=== PATIENT | female | born 1965 | race Asian ===

== ENCOUNTER 2023-03-12 08:40 | Outpatient (CLI) | payer OTHER, SELFPAY ==
--- OUTSIDE RECORDS SUMMARY | 2023-03-16 23:08 | XMS_ITS | Continuity of Care Document ---
Author Name Unknown Organization [facility] Address [address] [place] [address] Phone Care Team Providers Care Medical Communication Specialist Name Role Phone Toñito Lyles MD Unavailable Unavailable Allergies, Adverse Reactions, Alerts Substance Reaction Status Criticality No Known Allergies Active No Inform ation Medications Medication Instructions Dosage Effective Dates (start - stop) Status Comments pilocarpine 5 mg tablet take 1 tablet by oral route 4 times daily - Active Plaquenil 200 mg tablet take 1 tablet by oral route 2 times every day 200 MG - Active amlodipine 5 mg tablet take 1 tablet by oral route every day 5 MG - Active Vitamin B-12 1,000 mcg tablet take 1 Tablet by Oral route every day 1 Tablet - Active estradiol 1 mg tablet take 1 tablet by oral route every day 1 MG - Active norethindrone acetate 5 mg tablet take 1 tablet by oral route every day during second half of the menstrual cycle 5 MG - Active levothyroxine 50 mcg tablet take 1 tablet by oral route every day 50 MCG - Active Zyrtec 10 mg Tab take 1 tablet (10MG) by oral route every day 10 MG - Active pilocarpine 5 mg tablet take 1 tablet by oral route 4 times daily - No Longer Active Plaquenil 200 mg tablet take 1 tablet by oral route 2 times every day 200 MG - No Longer Active Procedures Procedure Date Office/Outpatient Visit, Est Routine Venipuncture Assay Of Serum Albumin Assay Of Creatinine Transferase (Ast) (Sgot) Alanine Amino (Alt) (Sgpt) Complete Cbc, Automated Office/Outpatient Visit, Est Routine Venipuncture Assay Of Serum Albumin Assay Of Creatinine Transferase (Ast) (Sgot) Alanine Amino (Alt) (Sgpt) Complete Cbc, Automated Office/Outpatient Visit, Est Routine Venipuncture Rbc Sed Rate, Nonautomated Assay Of Serum Albumin Assay Of Creatinine Transferase (Ast) (Sgot) Alanine Amino (Alt) (Sgpt) CReactive Protein Complete Cbc, Automated Routine Venipuncture Dna Antibody, Single Strand Dna Antibody, [place] Nuclear Antigen Antibodies Office/Outpatient Visit, Est Routine Venipuncture Rbc Sed Rate, Nonautomated Assay Of Serum Albumin Assay Of Creatinine Transferase (Ast) (Sgot) Alanine Amino (Alt) (Sgpt) CReactive Protein Complete Cbc, Automated Office/Outpatient Visit, Est Routine Venipuncture Assay Of Serum Albumin Assay Of Creatinine Transferase (Ast) (Sgot) Alanine Amino (Alt) (Sgpt) Complete Cbc, Automated Office/Outpatient Visit, Est Routine Venipuncture Rbc Sed Rate, Nonautomated Assay Of Serum Albumin Assay Of Creatinine Transferase (Ast) (Sgot) Alanine Amino (Alt) (Sgpt) CReactive Protein Complete Cbc, Automated Office/Outpatient Visit, Est Office/Outpatient Visit, Est Routine Venipuncture Rbc Sed Rate, Nonautomated Assay Of Serum Albumin Assay Of Creatinine Transferase (Ast) (Sgot) Alanine Amino (Alt) (Sgpt) CReactive Protein Antinuclear Antibodies Complete Cbc, Automated Office/Outpatient Visit, Est Routine Venipuncture Rbc Sed Rate, Nonautomated Assay Of Serum Albumin Assay Of Creatinine Transferase (Ast) (Sgot) Alanine Amino (Alt) (Sgpt) CReactive Protein Complete Cbc, Automated Office/Outpatient Visit, Est Routine Venipuncture Assay Of Serum Albumin Assay Of Creatinine Transferase (Ast) (Sgot) Alanine Amino (Alt) (Sgpt) Complete Cbc, Automated Office/Outpatient Visit, Est Routine Venipuncture Rbc Sed Rate, Nonautomated Assay Of Serum Albumin Assay Of Creatinine Transferase (Ast) (Sgot) Alanine Amino (Alt) (Sgpt) CReactive Protein Complete Cbc, Automated Office/Outpatient Visit, Est Routine Venipuncture Rbc Sed Rate, Nonautomated Assay Of Serum Albumin Assay Of Creatinine Transferase (Ast) (Sgot) Alanine Amino (Alt) (Sgpt) CReactive Protein Complete Cbc, Automated Office/Outpatient Visit, Est Routine Venipuncture Rbc Sed Rate, Nonautomated CReactive Protein Office/Outpatient Visit, New Routine Venipuncture Specimen Handling Rbc Sed Rate, Nonautomated Assay Of Serum Albumin Assay Of Creatinine Transferase (Ast) (Sgot) Alanine Amino (Alt) (Sgpt) CReactive Protein Complete Cbc, Automated Lyme Disease Antibody Rheumatoid Factor, IGM Rheumatoid Factor, IGG, IGA Office/Outpatient Visit, New Routine Venipuncture Specimen Handling CReactive Protein Complete Cbc WAuto Diff Wbc Rbc Sed Rate, Nonautomated Results Test Name Date and Time Measure Units Reference Range Abnormal Flag Status Comments Panel Description: CBC no diff - [place] Final WBC 3 11:07:00 6.6 K/uL 4.0-10.0 Final RBC 3 11:07:00 4.09 M/uL 3.80-5.80 Final Hemoglobin 3 11:07:00 13.5 g/dL 11.5-16.0 Final Hematocrit 3 11:07:00 39.3 % 37.0-47.0 Final MCV 3 11:07:00 96 fL 80-100 Final MCH 3 11:07:00 33.1 pg 27.0-32.0 H Final MCHC 3 11:07:00 34.5 g/dL 32.0-36.0 Final RDW 3 11:07:00 11.2 % 11.0-16.0 Final Platelet Count 11:07:00 356 K/uL 150-500 Final MPV 11:07:00 6.8 fL 6.0-11.0 Final Panel Description: DMARD Final AST 11:52:00 13 U/L 5-34 Final ALT 3 11:52:00 12 IU/L 5-35 Final Creatinine 11:52:00 0.500 mg/dL 0.500-1.300 Final ALB 3 11:52:00 4.1 g/dL 3.5-5.3 Final GFR 11:52:00 134.7 mL/min/1.7 3 m2 Final Advance Directives Directive Yes / No Effective Date File Name No Information Encounters Encounter Description Practice Location Reason(s) For Visit Diagnoses Date Provider Providers Copied on Encounter Office/Outpa tient Visit, Est [facility] , [address], [place], [address], [place] tel:[phone] [facility] , Inflammatory Polyarthropa thy (chief complaint) Inflammatory polyarthropa thyBone healthCounse lingHigh risk medication monitoringDr y mouth 3 Rafal Sibley. [facility] [address], [place], [address], [place]. tel:[phone] Referring Provider: Toñito Freitas, [facility] [address], [place], [address]. tel:[phone] Office/Outpa tient Visit, Est [facility] , [address], [place], [address], [place] tel:[phone] [facility] , Inflammatory Polyarthropa thy (chief complaint) Inflammatory polyarthropa thyBone healthCounse lingHigh risk medication monitoringDr y mouthPain in left hip 2 Rafal Sibley. [facility] [address], [place], [address], [place]. tel:[phone] Referring Provider: Toñito Freitas, [facility] [address], [place], [address]. tel:[phone] Office/Outpa tient Visit, Est [facility] , [address], [place], [address], [place] tel:[phone] [facility] , Inflammatory Polyarthropa thy (chief complaint) Infl[facility]rop[facility] Healthe lingHigh risk medication monitoringPr imary OA of handDry mouth Jan- 2 Rafal Sibley. [facility] [address], [place], [address], [place]. tel:[phone] Referring Provider: Toñito Freitas, [facility] [address], [place], [address]. tel:[phone] [facility] , [address], [place], [address], [place] tel:[phone] [facility] , No Information 2 Rafal Sibley. [facility] [address], [place], [address], [place]. tel:[phone] Referring Provider: Toñito Freitas, [facility] [address], [place], [address]. tel:[phone] Office/Outpa tient Visit, Est [facility] , [address], [place], [address], [place] tel:[phone] [facility] , Inflammatory Polyarthropa thy (chief complaint) Inflammatory polyarthropa thyBone healthCounse lingHigh risk medication monitoringPr imary OA of hand 2 Rafal Sibley. [facility] [address], [place], [address], [place]. tel:[phone] Referring Provider: Toñito Freitas, [facility] [address], [place], [address]. tel:[phone] Office/Outpa tient Visit, Est [facility] , [address], [place], [address], [place] tel:[phone] [facility] , Inflammatory Polyarthropa thy (chief complaint) Inflammatory polyarthropa thyBone healthCounse lingHigh risk medication monitoringLa teral epicondyliti s, left elbow 1 Rafal Sibley. [facility] [address], [place], [address], [place]. tel:[phone] Referring Provider: Toñito Freitas, [facility] [address], [place], [address]. tel:[phone] Office/Outpa tient Visit, Est [facility] , [address], [place], [address], [place] tel:[phone] [facility] , Inflammatory Polyarthropa thy (chief complaint) Inflammatory polyarthropa thyBone healthCounse lingHigh risk medication monitoring 1 Rafal Sibley. [facility] [address], [place], [address], [place]. tel:[phone] Referring Provider: Toñito Freitas, [facility] [address], [place], [address]. tel:[phone] Office/Outpa tient Visit, Est [facility] , [address], [place], [address], [place] tel:[phone] [facility] , Inflammatory Polyarthropa thy (chief complaint) Inflammatory polyarthropa thyBone healthHigh risk medication monitoringCo unseling 0 Rafal Sibley. [facility] [address], [place], [address], [place]. tel:[phone] Referring Provider: Toñito Freitas, [facility] [address], [place], [address]. tel:[phone] Office/Outpa tient Visit, Est [facility] , [address], [place], [address], [place] tel:[phone] [facility] , Inflammatory Polyarthropa thy (chief complaint) Inflammatory polyarthropa thyBone healthHigh risk medication monitoringAc hilles tendinitis, right legDry mouth 0 Rafal Sibley. [facility] [address], [place], [address], [place]. tel:[phone] Referring Provider: Toñito Freitas, [facility] [address], [place], [address]. tel:[phone] Office/Outpa tient Visit, Est [facility] , [address], [place], [address], [place] tel:[phone] [facility] , Inflammatory Polyarthropa thy (chief complaint) Inflammatory polyarthropa thyBone healthHigh risk medication monitoring Dec- Rafal Sibley. [facility] [address], [place], [address], [place]. tel:[phone] Referring Provider: Toñito Freitas, [facility] [address], [place], [address]. tel:[phone] Office/Outpa tient Visit, Est [facility] , [address], [place], [address], [place] tel:[phone] [facility] , Inflammatory Polyarthropa thy (chief complaint) Inflammatory polyarthropa thyBone healthHigh risk medication monitoring [facility] Toñito. [facility] [address], [place], [address], [place]. tel:[phone] Referring Provider: Toñito Freitas, [facility] [address], [place], [address]. tel:[phone] Office/Outpa tient Visit, Est [facility] , [address], [place], [address], [place] tel:[phone] [facility] , Inflammatory Polyarthropa thy (chief complaint) Inflammatory polyarthropa thyBone healthHigh risk medication monitoringPa resthesia of skin [facility] Toñito. [facility] [address], [place], [address], [place]. tel:[phone] Referring Provider: Toñito Freitas, [facility] [address], [place], [address]. tel:[phone] Office/Outpa tient Visit, Est [facility] , [address], [place], [address], [place] tel:[phone] [facility] , Inflammatory Polyarthropa thy (chief complaint) Inflammatory polyarthropa thyBone healthHigh risk medication monitoring 9 Rafal Craigad. [facility] [address], [place], [address], [place]. tel:[phone] Referring Provider: Toñito Freitas, [facility] [address], [place], [address]. tel:[phone] Office/Outpa tient Visit, Est [facility] , [address], [place], [address], [place] tel:[phone] [facility] , Inflammatory Polyarthropa thy (chief complaint) Inflammatory polyarthropa thyBone healthHigh risk medication monitoring 9 Rafal Toñito. [facility] [address], [place], [address], [place]. tel:[phone] Referring Provider: Toñito Freitas, [facility] [address], [place], [address]. tel:[phone] Office/Outpa tient Visit, New [facility] , [address], [place], [address], [place] tel:[phone] [facility] , Joint Pain (chief complaint) Joint pain multiple sitesPositiv e Antibody Nov- 8 Rafal Toñito. [facility] [address], [place], [address], [place]. tel:[phone] Referring Provider: Toñito Freitas, [facility] [address], [place], [address]. tel:[phone] Office/Outpa tient Visit, New [facility] , [address], [place], [address], [place] tel:[phone] [facility] , Joint Pain (chief complaint) Pain in joint involving multiple sitesAchille s bursitis or tendinitis 2 Paras Henderson. [facility] [address], [place], [address], [place]. tel:[phone] Referring Provider: Santiago Fam, [facility] [address], [place], [address]. tel:[phone] Family History Family Member Type Diagnosis Age At Onset Problem (finding) No family hist ory of Rheumatoid arthritis Payers Payer name Insurance type Covered green party ID Authoriza tisonia(s) [facility] [id number] Social History Type Description Quantity Date Captured Comments Alcohol Use Details No Caffeine Use Details Tobacco Use Status No Information Smoking Status Never smoker Non-Smoking Tobacco Use Details : No Details Available : No Details Available Sex Female Vital Signs Date / Time: Height Weight BMI Pulse Rate Blood Pressure Temperature Respiratory Rate Body Surface Area Head Circumference Head Circ. Percentile Wt./Josse. Percentile BMI percentile Pulse Ox Inhaled Ox 9:52 AM 63.78 in 71.668 kg (158.00 lbs) 27.3 1 kg/m eter (2) 128/84 mm[Hg] 97.50 F Chief Complaint And Reason For Visit From encounter dated '12/10/2022 09:45'. Inflammatory Polyarthropathy (chief complaint) Reason For Referral Reason For Referral No Information Plan Of Treatment Date Type Action Status Referral Ordered: [facility] -Orthopedic Surgery (related to Inflammatory polyarthropathy) ordered Referral Referred To: [facility] [place], [address] [phone] Ordered: Referrals: Orthopedic Surgery. [facility]. Evaluate and treat ordered Appointment Emilia Richards BOOKED History Of Present Illness Encounter Date Complaint History Of Prese nt Illness Inflammatory Polyarthropathy Inflammatory Polyarthropathy Inflammatory Polyarthropathy Inflammatory Polyarthropathy Inflammatory Polyarthropathy Inflammatory Polyarthropathy Inflammatory Polyarthropathy Inflammatory Polyarthropathy Inflammatory Polyarthropathy Inflammatory Polyarthropathy Inflammatory Polyarthropathy Inflammatory Polyarthropathy Inflammatory Polyarthropathy Joint Pain Functional Status Date Functional Assessmen t Pain Score 05/12 Instructions Date Instruction Additional Infor mation No Information Assessments Type Assessment Date assessment Inflammatory polyarthropathy Dec assessment Bone health assessment Counseling assessment High risk medication monitoring assessment Dry mouth Patient Care Teams Name Effective Dates (start - stop) Status Members No Information
== END 2023-03-12 08:41 | disposition home or self-care (01) ==
LOC: NFLDREF 03-16 23:05
PROVIDERS: PCP Family Medicine; Referring Provider Family Medicine; Visit Provider Family Medicine
DX: I10 Essential (primary) hypertension (principal); E78.5 Hyperlipidemia, unspecified; E55.9 Vitamin D deficiency, unspecified; E03.9 Hypothyroidism, unspecified
CPT/HCPCS: 80053; 80061; 82306; 84443

== ENCOUNTER 2023-08-03 09:28 | Outpatient (CLI) | payer OTHER, SELFPAY | END 2023-08-03 09:29 | disposition home or self-care (01) | LOC: NFLDREF 17:06 | PROVIDERS: PCP Family Medicine; Referring Provider Family Medicine; Visit Provider Family Medicine | DX: E78.5 Hyperlipidemia, unspecified (principal); I10 Essential (primary) hypertension; R79.89 Other specified abnormal findings of blood chemistry | CPT/HCPCS: 80061; 80076 ==

== ENCOUNTER 2023-08-03 14:43 | Outpatient (CLI) | payer OTHER, SELFPAY ==
--- NOTE | 2023-08-03 15:00 | MM_ITS ---
Patient: REBEL CAMPBELL Facility:?[facility] Patient ID:?[id number] Site Patient ID:?[id number]. Site :?[id number] Study:?XRay-Breast Bilateral 3D screening mammogram w/cad-08/03/2023 3:13:35 PM Ordering Physician:JUAN Final Report: BILATERAL SCREENING MAMMOGRAM WITH COMPUTER-AIDED DETECTION AND TOMOSYNTHESIS TECHNIQUE: CC and MLO views were obtained. These mammographic images have been obtained using full-field digital technique. These mammographic images were interpreted with the benefit of computer-aided detection. Breast Tomosynthesis was used in this interpretation. COMPARISON FILM: 10/03/20, 04/04/19, 01/25/18. FINDINGS: The breasts are heterogeneously dense, which may obscure small masses. IMPRESSION: There is no radiographic evidence for malignancy. ASSESSMENT: BI-RADS Category 1: Negative RECOMMENDATION: Routine screening mammogram in 1 year. A lay language report of this examination will be provided to the patient. Villa Munguia M.D. Diagnostic Radiologist [email or web address] DSM/sp R& Transcribed: 1:57 p.m. SP/Dictated by: Villa Munguia MD @ 08/04/2023 10:01:00 AM Signed by:Leatha Munguia MD @08/04/2023 3:07:20 PM (Electronic Signature)
== END 2023-08-03 14:44 | disposition home or self-care (01) ==
LOC: MAMMO 14:44
PROVIDERS: PCP Family Medicine; Visit Provider Family Medicine
DX: Z12.31 Encounter for screening mammogram for malignant neoplasm of breast (principal); R92.2 Inconclusive mammogram
CPT/HCPCS: 77063; 77067

== ENCOUNTER 2024-03-08 12:24 | Outpatient (CLI) | payer BC, SELFPAY ==
--- OUTSIDE RECORDS SUMMARY | 2024-03-09 08:22 | XMS_ITS | Encounter Summary ---
Author Organization [facility] Address [address] [place] [address] Care Team Providers Care Wick Tender Name Role Phone Toñito Lyles MD Unavailable [phone] Yin Kong Primary Care Provider [phone] Encounter Details Date Type Department Care Team (Late st Contact Info) Description 02/16/2024 Travel Subj: Question naire Submission Social History Tobacco Use Types Packs/Day Years Used Date Smoking Tobacco: Never Smokeless Tobacco: Never Alcohol Use Standard Drinks/Week Comments Not Currently 0 (1 standard drink = 0.6 oz pure alcohol) Patient is allergic to alcohol [facility] Utilities Answer Date Recorded In the past [address] [facility] [place], gas, oil, or water [employer] threatened to shut off services in your home? No 07/21/2023 Humiliation, Afraid, Rape, and Kick questionnair e Answer Date Recorded Within the last year, have y ou been afraid of your partner or ex-partner? No 07/21/2023 Within the last year, have y ou been humiliated or emotionally abused in other ways by your partner or ex-partner? No Within the last year, have y ou been kicked, hit, slapped, or otherwise physically hurt by your partner or ex-partner? No 07/21/2023 Within the last year, have y ou been raped or forced to have any kind of sexual activity by your partner or ex-partner? No 07/21/2023 Social Connection and Isolat ion Panel [NHANES] Answer Date Recorded In a typical week, how many times do you talk on the phone with family, friends, or neighbors? More than three times a week 07/21/2023 How often do you get togethe r with friends or relatives? Once a week 07/21/2023 How often do you attend chur ch or christian services? Never 07/21/2023 Do you belong to any clubs o r organizations such as tenriism groups, unions, fraternal or athletic groups, or school groups? No 07/21/2023 Attends Club or Organization Meetings Not on dominique e 07/21/2023 Are you , , di vorced, , never , or living with a partner? 07/21/2023 AUDIT-C Answer Date Recorded Q1: How often do you have a drink containing alc ohol? Never 07/21/2023 Average Number of Drinks Not on file 024 Frequency of Binge Drinking Not on file 07/02 Overall Financial Resource Strain (CARDIA) Answe r Date Recorded How hard is it for you to pa y for the very basics like food, housing, medical care, and heating? Not hard at all 07/21/2023 [facility] - Occupational Stress Questionnaire Answer Date Recorded Do you feel stress - tense, restless, nervous, or anxious, or unable to sleep at night because your mind is troubled all the time - these days? Not at all 07/21/2023 Exercise Vital Sign Answer Date Recorde d On average, how many days pe r week do you engage in moderate to strenuous exercise (like a brisk walk)? 0 days 07/21/2023 On average, how many minutes do you engage in exercise at this level? 0 min 07/21/2023 Hunger Vital Sign Answer Date Recorded Within the past 12 months, y ou worried that your food would run out before you got the money to buy more. Never true 07/21/19 24 Within the past 12 months, t he food you bought just didn't last and you didn't have money to get more. Never true 07/21/2023 Housing Stability Vital Sign Answer Omar e Recorded In the last 12 months, was t here a time when you were not able to pay the mortgage or rent on time? No 07/21/2023 Number of Times Moved in the Last Year Not on fi le 07/21/2023 Homeless in the Last Year Not on file 2023 Housing Stability Answer Date Recorded In the last 12 months, was t here a time when you were not able to pay the mortgage or rent on time? No 07/21/2023 In the last 12 months, how many places have you lived? 1 07/21/2023 Number of Places Lived in the Last Year (Outpati ent) Not on file 07/21/2023 Number of Places Lived in the Last Year (Inpatie nt) Not on file 07/21/2023 In the last 12 months, was t here a time when you did not have a steady place to sleep or slept in a usp (including now)? No 07/21/2023 Depression (PHQ-9) Answer Date Recorded Last PHQ-9 Score 3 07/21/2023 Thoughts of self harm Not at all 07/21/2023 Intimate Partner Violence Answer Date R ecorded Are you in a relationship wh ere you are physically hurt, threatened and/or made to feel afraid? Unable to assess Transportation Needs Answer Date Record ed In the past 12 months, has l ack of transportation kept you from medical appointments, meetings, work, or from getting medicines or things needed for daily living? No 07/21/2023 Sex and Gender Information Value Date Recorded Sex Assigned at Not on file Gender Identity Not on file Sexual Orientation Not on file documented as of this encounter Functional Status Functional Status Response Date of Assess ment Are you deaf or do you have serious difficulty h earing? No 02/16/2024 documented as of this encounter Plan of Treatment Not on file documented as of this encounter Visit Diagnoses Not on filedocumented in this encounter Care Teams Wick Tender Relationship Specialty Start Date End Date Yin Kong PAC [address] [place] [phone] PCP - General Physician Treatment Coordinator 01/05/24 Toñito Lyles MD [address] [facility] [address] [place] [phone] Internal Medicine Rheumatology 10/11/23 documented as of this encounter Additional Source Comments PLEASE NOTE: Replies to this message will not be received.[facility]
--- OUTSIDE RECORDS SUMMARY | 2024-03-09 08:22 | XMS_ITS | Referral Summary ---
Author Organization [facility] Address [address] [place] [address] Care Team Providers Care Copy Preparer Name Role Phone Toñito Lyles MD Unavailable [phone] Yin Kong Primary Care Provider [phone] Encounters Date Type Department Care Team Description 02/16/2024 Travel Subj: Question ko Submission 02/16/2024 10:17 AM CDT - 02/16/2024 11:59 PM CDT Hospital Encounter [facility] Nuclear Medicine (a service of [facility]) [address] [place] [address] Swathi Medley, PAC Subj: Questionnaire Submission Discharge Disposition: Discharge Home 01/31/2024 Travel Subj: Question ko Submission 01/31/2024 9:40 AM CDT Office Visit [facility] [address] [place] [address] Shahana Thao APRN,TALENT ASSISTANT Dx: Muscle strain (Primary Dx) from Last 3 Months Allergies Active Allergy Reactions Criticality Noted Date Comments Sulfa (Sulfonamide Antibiotics) Diarrhea Low 05/0 10/2023 Medications Medication Sig Dispensed Refills Start Date End Date Status norethindrone-ethi nyl estradiol (FEMHRT) 1-5 mg-mcg oral Tablet tablet Take 1 Tablet by mouth in the evening. 5 mg daily in the evening Active levothyroxine (SYNTHROID) 50 mcg oral Tablet Take 1 Tablet (50 mcg) by mouth daily before breakfast. Active estradioL (ESTRACE) 1 mg oral Tablet Take 1 Tablet (1 mg) by mouth in the morning. Active amLODIPine (NORVASC) 5 mg oral Tablet Take by mouth in the morning. Active pilocarpine (SALAGEN) 5 mg oral Tablet Take 1 Tablet (5 mg) by mouth in the morning and 1 Tablet (5 mg) at noon and 1 Tablet (5 mg) in the evening and 1 Tablet (5 mg) before bedtime. Take 3-4 times daily. Active hydrOXYchloroQUINE (PLAQUENIL) 200 mg oral Tablet Take 1 Tablet (200 mg) by mouth in the morning and 1 Tablet (200 mg) in the evening. Active famotidine (PEPCID) 20 mg oral TabletIndications: Generalized abdominal pain,Epigastric pain Take 1 Tablet (20 mg) by mouth in the morning and 1 Tablet (20 mg) in the evening. 180 Tablet 3 07/21/2023 07/20/2024 Active Additional Information Patient taking differently:20 mg oralAs needed, dyspepsia, Reason: Other, Reported on 08/25/2023 rosuvastatin (CRESTOR) 5 mg oral Tablet Take 1 Tablet (5 mg) by mouth in the morning. 07/06/2023 Active RESTASIS 0.05 % ophthalmic Dropperette 1 Drop by both eyes (OU) route in the morning and 1 Drop in the evening. 08/23/2023 Active metroNIDAZOLE (METROCREAM) 0.75 % topical Cream Apply to the affected area(s) twice daily. 08/23/2023 Active cyanocobalamin (VITAMIN B-12) 1,000 mcg oral Tablet Take 1 Tablet (1,000 mcg) by mouth in the morning. Active KRILL OIL ORAL Take by mouth once daily. Active Saccharomyces boulardii (FLORASTOR) 250 mg oral Capsule Take by mouth once daily. Active omeprazole (PRILOSEC) 20 mg oral Capsule, Delayed Release(E.C.)Indic ations:Epigastric pain Take 1 Capsule (20 mg) by mouth daily before breakfast. 90 Capsule 3 08/25/2023 08/24/2024 Active clindamycin phosphate (CLEOCIN) 1 % topical Solution 10/05/2023 Active cyclobenzaprine (FLEXERIL) 10 mg oral TabletIndications: Injury of back, initial encounter,Muscle strain Take 1 Tablet (10 mg) by mouth if needed at bedtime for muscle spasms. 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 HTN (hypertension), benign 03/01/2022 Menopause 03/01/2022 Allergic urticaria 03/01/2022 Sjogren's disease 11/22/2021 Seasonal allergies 09/04/2009 Immunizations Name Administration Dates Next Due Influenza Vac, IM, Quadrival ent Preserv Free, (>6 months) 03/26/2023,04/07/2016 Tdap Vaccine, IM, (Adacel)(Boostrix) 01/14/2018, 10/13/2014,01/25/2006 Varicella Vaccine, IM (Shingrix) 09/21/2019,04/02 Social History Tobacco Use Types Packs/Day Years Used Date Smoking Tobacco: Never Smokeless Tobacco: Never Tobacco Cessation:Counseling Given: Not Answered Alcohol Use Standard Drinks/Week Comments Not Currently 0 (1 standard drink = 0.6 oz pure alcohol) Patient is allergic to alcohol [employer] Answer Date Recorded In the past 12 months has [employer], gas, oil, or water [employer] threatened to shut off services in your [...] often do you attend chur ch or latter day services? Never 07/21/2023 Do you belong to any clubs o r organizations such as islam groups, unions, fraternal or athletic groups, or [...] and heating? Not hard at all 07/21/2023 [facility] - Occupational Stress [...] place to sleep or slept in a halfway (including now)? No 07/21/2023 Depression (PHQ-9) Answer [...] on file Sexual Orientation Not on file Last Filed Vital Signs Vital Sign Reading Time Taken Comments Blood Pressure 146/87 01/31/2024 9:30 AM CDT Pulse 118 01/31/2024 9:30 AM CDT Temperature 36.8 ??C (98.3 ??F) 07/23/2023 6:04 PM CD T Respiratory Rate 18 07/23/2023 6:04 PM CDT Oxygen Saturation 98% 09/06/2023 1:54 PM CDT Inhaled Oxygen Concentration - - Weight 70.8 kg (156 lb) 02/16/2024 10:37 AM CDT Height 164 cm (5' 4.57) 09/06/2023 1:54 PM CDT Body Mass Index 26.31 09/06/2023 1:54 PM CDT Functional Status Functional Status Response Date of Assess ment Are you deaf or do you have serious difficulty h earing? No 02/16/2024 Plan of Treatment Not on file Procedures Procedure Name Priority Date/Time Associated Diagnosis Comments NM HEPATOBILIARY SCAN W PHARM Routine 02/16/2024 12:43 PM CDT from Last 3 Months Results * NM HEPATOBILIARY SCAN W PHARM (02/16/2024 12:43 PM CDT) Anatomical Region Laterality Modality Gall bladder Nuclear Medicine 02/16/2024 4:43 PM CDT Narrative 02/16/2024 4:44 PM CDT EXAM: NM HEPATOBILIARY SCAN W PHARM INDICATION: Epigastric pain. O/A Hida scan w ejection fraction RADIOPHARMACEUTICALS: MATERIAL: Tc-99m mebrofenin IV DOSE: 4.20 mci CCK: 1.42 micrograms IV TECHNIQUE: Following radiotracer administration, anterior planar imaging of the abdomen was performed for up to 60 minutes. ??After visualization of the gallbladder, CCK was administered over 60 minutes and time-activity curve was generated with gall bladder ejection fraction calculated. COMPARISON: There are no relevant comparisons. FINDINGS: There is prompt, uniform accumulation of the radiopharmaceutical by the liver. There is normal filling of the intrahepatic ducts, common bile duct and gallbladder and normal excretion of the radiopharmaceutical into the duodenum. There isgood contraction of the gallbladder following CCK challenge. Calculated gallbladder ejection fraction is 96% (normal greater than 33%). IMPRESSION: 1. Normal contractile response to CCK challenge. 2. Otherwise normal hepatobiliary imaging study. Procedure Note Torsten Vincent MD - 02/16/2024 EXAM: NM HEPATOBILIARY SCAN W PHARM INDICATION: Epigastric pain. O/A Hida scan w ejection fraction RADIOPHARMACEUTICALS: MATERIAL: Tc-99m mebrofenin IV DOSE: 4.20 mci CCK: 1.42 micrograms IV TECHNIQUE: Following radiotracer administration, anterior planar imaging of theabdomen was performed for up to 60 minutes. After visualization of thegallbladder, CCK was administered over 60 minutes and time-activity curve was generatedwith gall bladder ejection fraction calculated. COMPARISON: There are no relevant comparisons. FINDINGS: There is prompt, uniform accumulation of the radiopharmaceutical by theliver. There is normal filling of the intrahepatic ducts, common bile duct and gallbladder and normal excretion of the radiopharmaceutical into theduodenum. There isgood contraction of the gallbladder following CCK challenge. Calculated gallbladder ejection fraction is 96% (normal greater than33%). IMPRESSION: 1. Normal contractile response to CCK challenge. 2. Otherwise normal hepatobiliary imaging study. Swathi E Galindo [facility] RAD NUCLEAR MEDICI NE from Last 3 Months Care Teams Copy Preparer Relationship Specialty Start Date End Date Yin Kong PAC [address] [place] [phone] PCP - General Physician Pruner 01/05/24 Toñito Lyles MD [address] [facility] [address] [phone] Internal Medicine Rheumatology 10/11/23 Additional Source Comments PLEASE NOTE: Replies to this message will not be received.[facility]
--- OUTSIDE RECORDS SUMMARY | 2024-03-09 08:22 | XMS_ITS | Clinical Summary ---
Author Organization [facility] Address [place], [place] [address] Care Team Providers Care [employer] Miner Name Role Phone Poly Dixon MD Primary Care Provider + Allergies Active Allergy Reactions Criticality Noted Date Comments Sulfa (Sulfonamide Antibiotics) Diarrhea Low 10/2023 Medications Medication Sig Dispensed Refills Start Date End Date Status amLODIPine (NORVASC) 5 mg tablet Take by mouth. Active cetirizine (ZYRTEC) 10 mg tablet Take 1 Tablet by mouth once daily. Active clindamycin phosphate 1% topical 1 % external solution 10/05/2023 Active cyanocobalamin (VITAMIN B12) 1,000 mcg tablet Take 1,000 mcg by mouth. Active cycloSPORINE (Restasis) 0.05 % ophthalmic emulsion Place 1 Drop into the eye(s). 08/23/2023 Active estradioL (ESTRACE) 1 mg tablet Take 1 mg by mouth. Active famotidine (PEPCID) 20 mg tablet Take 20 mg by mouth. 07/21/2023 07/20/2024 Active hydroxychloroquine (PlaqueniL) 200 mg tablet Take by mouth two times daily. 10/14/2023 Active levothyroxine (SYNTHROID) 50 mcg tablet Take 50 mcg by mouth. Active metroNIDAZOLE (METROCREAM) 0.75 % cream Apply topically to affected area(s). 08/23/2023 Active ethinyl estradiol-norethindr one, 5 mcg-1 mg, (FEMHRT 1/5) 5-1 mcg-mg tab Take 1 Tablet by mouth. Active omeprazole (PRILOSEC) 20 mg Delayed-Release capsule Take 20 mg by mouth. 08/25/2023 08/24/2024 Active pilocarpine (SALAGEN) 5 mg tablet take 1 tablet by oral route 4 times daily 10/14/2023 Active rosuvastatin (CRESTOR) 5 mg tablet Take 5 mg by mouth. 07/06/2023 Active Saccharomyces boulardii (FLORASTOR) 250 mg capsule Take by mouth. Active Encounters Date Type Department Care Team Description 02/21/2024 11:00 AM CDT Office Visit [facility] [address] [place] [phone] Celina Guzman MD Consult (Gallbladder ) 02/21/2024 Travel from Last 3 Months Social History Tobacco Use Types Packs/Day Years Used Date Smoking Tobacco: Never Assessed Sex and Gender Information Value Date Recorded Sex Assigned at Not on file Gender Identity Not on file Sexual Orientation Not on file Last Filed Vital Signs Vital Sign Reading Time Taken Comments Blood Pressure 153/92 02/21/2024 11:08 AM CDT Pulse 109 02/21/2024 11:08 AM CDT Temperature 37.3 ??C (99.1 ??F) 02/21/2024 1 1:06 AM CDT Respiratory Rate - - Oxygen Saturation 96% 02/21/2024 11: 06 AM CDT Inhaled Oxygen Concentration - - Weight 73.4 kg (161 lb 14.4 oz) 024 11:06 AM CDT Height 162.6 cm (5' 4) 02/21/2024 11:0 6 AM CDT Body Mass Index 27.79 02/21/2024 11:06 AM CDT Plan of Treatment Upcoming Encounters Date Type Department Care Team (Latest Contact Info) Description 03/24/2024 1:16 PM METALLURGICAL LAB TECHNICIAN Hospital Encounter [facility] [address] [place] [address] Celina Guzman MD [address] [id number] 03/24/2024 1:16 PM METALLURGICAL LAB TECHNICIAN - 03/24/2024 3:16 PM METALLURGICAL LAB TECHNICIAN Surgery [facility] [address] [place] [address] Celina Guzman MD [address] [place] [address] laparoscopic cholecystectomy 03/29/2024 10:40 AM METALLURGICAL LAB TECHNICIAN Nurse/Clinic Staff Only [facility] [address] [place] [phone] Scheduled Procedures Name Priority Associated Diagnoses Date/Ti me LAPAROSCOPIC CHOLECYSTECTOMY Elective Biliary dyskinesia 03/24/2024 1:16 PM METALLURGICAL LAB TECHNICIAN Health Maintenance Due Date Last Done Comments Tdap 10/21/1975 Depression screening for age 12+ 1976 HIV for age 15-65 10/21/1979 Hepatitis C screening for age 18-79 1982 Tetanus booster 1984 Colonoscopy through age 75 2009 Lipids for age 45-75 2009 Mammogram for age 45-75 2009 Zoster (shingles) series for age 50+ (1 of 2) 2014 COVID-19 vaccine series ( season) 2024 11/19/2021, 02/10/2021, 08/13/2020, Additional history exists Influenza for age 50-64 01/02/2024 Pap test for age 21-65 10/22/2024 , 10/22/2021, 04/30/2017, Additional history exists BMI (ht and wt on same day) for age 18+ 02/20/2025 02/21/2024 Pneumococcal series for age 6-64 Aged Out No longer eligible based on patient's age to complete this topic Procedures Procedure Name Priority Date/Time Associated Diagnosis Comments HPV HIGH RISK Routine 10/22/2021 1:15 PM CDT from Last 3 Months or Most Recently Relevant to Health Maintenance Results * HPV HIGH RISK (10/22/2021 1:15 PM CDT) TYPE 16 Negative Negative 10/27/2021 11:09 AM CDT [facility] TYPE 18 Negative Negative 10/27/2021 11:09 AM CDT [facility] OTHER HIGH RISK TYPES Negative Negative 10/27/2021 11:09 AM CDT [facility] Other (Cervical) 10/22/2021 1:15 PM CDT 10/23/2021 6:02 PM CDT Narrative [facility] - 10/27/2021 11:09 AM CDT HPV types 16, 18, 31, 33, 35, 39, 45, 51, 52, 56, 58, 59, 66 and 68 DNA were undetectable or below the pre-set threshold. Methodology: Vika Juaquin 4800 HPV Test Juliana Us MD MICROBIOLOGY [facility] [address] [place] [address], from Last 3 Months or Most Recently Relevant to Health Maintenance Care Teams [employer] Miner Relationship Specialty Start Date End Date Poly Dixon MD [address] [place] [address] PCP - General Family Practice 03/06/24
--- OUTSIDE RECORDS SUMMARY | 2024-03-09 08:22 | XMS_ITS | Encounter Summary ---
Author Organization [facility] Address [address] [place] [address] Care Team Providers Care Production Team Member Name Role Phone Toñito Lyles MD Unavailable [phone] Yin Kong Primary Care Provider [phone] Encounter Details Date Type Department Care Team (Late st Contact Info) Description 01/31/2024 Travel Subj: Question naire Submission Social History Tobacco Use Types Packs/Day Years Used Date Smoking Tobacco: Never Smokeless Tobacco: Never Alcohol Use Standard Drinks/Week Comments Not Currently 0 (1 standard drink = 0.6 oz pure alcohol) Patient is allergic to alcohol [facility] Utilities Answer Date Recorded In the past 12 months has [facility] [employer], gas, oil, or water [employer] threatened to shut off services in your [...] often do you attend chur ch or mormonism services? Never 07/21/2023 Do you belong to any clubs o r organizations such as latter-day groups, unions, fraternal or athletic groups, or [...] and heating? Not hard at all 07/21/2023 [facility] Occupat ional Health - Occupational Stress [...] place to sleep or slept in a alf (including now)? No 07/21/2023 Depression (PHQ-9) Answer [...] on file documented as of this encounter Plan of Treatment Not on file documented as of this encounter Visit Diagnoses Not on filedocumented in this encounter Care Teams Production Team Member Relationship Specialty Start Date End Date Yin Kong PAC [address], [place] [phone] PCP - General Physician [employer] Architect 01/05/24 Toñito Lyles MD [address] [facility] [address] [phone] Internal Medicine Rheumatology 10/11/23 documented as of this encounter Additional Source Comments PLEASE NOTE: Replies to this message will not be received.[facility]
--- OUTSIDE RECORDS SUMMARY | 2024-03-09 08:22 | XMS_ITS | Encounter Summary ---
Author Organization [facility] [employer] [facility] Address [address] [place] [address] Care Team Providers Care Licensed Marine Engineer Name Role Phone Toñito Lyles MD Unavailable [phone] Yin Kong Primary Care Provider [phone] Reason for Visit * Reason Comments Back Pain Encounter Details Date Type Department Care Team (Late st Contact Info) Description 01/31/2024 9:40 AM CDT Office Visit [facility] [address] [place], [place] [id number] Shahana Thao, LEAF STRIPPER,MINUTE CLERK FOR BASIC TRAFFIC [address] [place] [phone] Dx: Muscle strain (Primary Dx) Social History Tobacco Use Types Packs/Day Years Used Date Smoking Tobacco: Never Smokeless Tobacco: Never Alcohol Use Standard Drinks/Week Comments Not Currently 0 (1 standard drink = 0.6 oz pure alcohol) Patient is allergic to alcohol [facility] Utilities Answer Date Recorded In the past 12 months has [employer], gas, oil, or water [employer] threatened to shut off services in your [...] 07/21/2023 How often do you attend chur or quaker services? Never 07/21/2023 Do you belong to any clubs o r organizations such as jewish groups, unions, fraternal or athletic groups, or [...] and heating? Not hard at all 07/21/2023 [facility] - Occupational Stress Questionnaire Answer Date [...] place to sleep or slept in a [facility] (including now)? No 07/21/2023 Depression (PHQ-9) Answer [...] on file documented as of this encounter Last Filed Vital Signs Vital Sign Reading Time Taken Comments Blood Pressure 146/87 01/31/2024 9:30 AM CDT Pulse 118 01/31/2024 9:30 AM CDT Temperature - - Respiratory Rate - - Oxygen Saturation - - Inhaled Oxygen Concentration - - Weight - - Height - - Body Mass Index - - documented in this encounter Patient Instructions * Patient Instructions* Shahana Thao, BETSY,MINUTE CLERK FOR BASIC TRAFFIC - 01/31/2024 9:40 AM CDT Images from the original note were not included. Some things you can do to help your symptoms: Heat to the back. Do this for about 20 minutes at least 2 times per day. If a recent injury every 2-3 hours for about 20 minutes. Medications as advised during appointment. Stretching your back (See Below) Stay active, but listen to your body. Bedrest is the worst thing you can do for your back, but avoid activities that exacerbate symptoms such as heavy lifting. Learning About How to Have a Healthy Back What causes back pain? The majority of back pain is due to muscle strain, wear and tear on the back, or deconditioning (weakness) and responds well to conservative care. Imaging (MRI) is not necessary in most cases. We would consider imaging in 4-6 weeks if the pain persists. Alarming signs would including loss of function in the legs or bladder and bowel. If this should occur, you should seek immediate medical attention. Aging plays a part too. Your bones and muscles tend to lose strength as you age, which makes injurymore likely. The spongy discs between the bones of the spine (vertebrae) may suffer from wear and tear and no longer provide enough cushion between the bones. A disc that bulges or breaks open (herniated disc) can press on nerves, causing back pain. In some people, back pain is the result of arthritis, broken vertebrae caused by bone loss (osteoporosis), illness, or a spine problem. Although most people have back pain at one time or another, there are steps you can take to make itless likely. How can you have a healthy back? Reduce stress on your back through good posture Slumping or slouching alone may not cause low back pain. But after the back has been strained or injured, bad posture can make pain worse. Sleep in a position that maintains your back's normal curves and on a mattress that feels comfortable. Sleep on your side with a pillow between your knees, or sleep on your back with a pillow under your knees. These positions can reduce strain on your back. Stand and sit up straight. Good posture generally means your ears, shoulders, and hips are in a straight line. If you must stand for a long time, put one foot on a stool, ledge, or box. Switch feet every now and then. Sit in a chair that is low enough to let you place both feet flat on the floor with both knees nearly level with your hips. If your chair or desk is too high, use a footrest to raise your knees. Place a small pillow, a rolled-up towel, or a lumbar roll in the curve of your back if you need extra support. When driving, keep your knees nearly level with your hips. Sit straight, and drive with both hands on the steering wheel. Your arms should be in a slightly bent position. Reduce stress on your back through careful lifting Squat down, bending at the hips and knees only. If you need to, put one knee to the floor and extend your other knee in front of you, bent at a right angle (half kneeling). Press your chest straight forward. This helps keep your upper back straight while keeping a slight arch in your low back. Hold the load as close to your body as possible, at the level of your belly button (navel). Use your feet to change direction, taking small steps. Lead with your hips as you change direction. Keep your shoulders in line with your hips as you move. Set down your load carefully, squatting with your knees and hips only. Lead a healthy lifestyle Stay at a healthy weight to avoid strain on your back. Do not smoke. Smoking increases the risk of osteoporosis, which weakens the spine. If you need helpquitting, talk to your doctor about stop-smoking programs and medicines. These can increase your chances of quitting for good. Take short walks (10 to 20 minutes) every 2 to 3 hours. Avoid slopes, hills, and stairs until you feel better. Walk only distances you can manage without pain, especially leg pain. Low Back Pain: Exercises Introduction Here are some examples of exercises for you to try. The exercises may be suggested for a condition or for rehabilitation. Start each exercise slowly. Ease off the exercises if you start to have pain. How to do the exercises Back stretches Get down on your hands and knees on the floor. Relax your head and allow it to droop. Round your back up toward the ceiling until you feel a nice stretch in your upper, middle, and lower back. Hold this stretch for as long as it feels comfortable, or about 15 to 30 seconds. Return to the starting position with a flat back while you are on your hands and knees. Let your back sway by pressing your stomach toward the floor. Lift your buttocks toward the ceiling. Hold this position for 15 to 30 seconds. Repeat 2 to 4 times. Press-up Lie on your stomach, supporting your body with your forearms. Press your elbows down into the floor to raise your upper back. As you do this, relax your stomach muscles and allow your back to arch without using your back muscles. As your press up, do not let your hips or pelvis come off the floor. Hold for 15 to 30 seconds, then relax. Repeat 2 to 4 times. Alternate arm and leg (bird dog) exercise Do this exercise slowly. Try to keep your body straight at all times, and do not let one hip drop lower than the other. Start on the floor, on your hands and knees. Tighten your belly muscles. Raise one leg off the floor, and hold it straight out behind you. Be careful not to let your hip drop down, because that will twist your trunk. Hold for about 6 seconds, then lower your leg and switch to the other leg. Repeat 8 to 12 times on each leg. Over time, work up to holding for 10 to 30 seconds each time. If you feel stable and secure with your leg raised, try raising the opposite arm straight out in front of you at the same time. [id number] exercise Lie on your back with your knees bent and your feet flat on the floor. Bring one knee to your chest, keeping the other foot flat on the floor (or keeping the other leg straight, whichever feels better on your lower back). Keep your lower back pressed to the floor. Hold for at least 15 to 30 seconds. Relax, and lower the knee to the starting position. Repeat with the other leg. Repeat 2 to 4 times with each leg. To get more stretch, put your other leg flat on the floor while pulling your knee to your chest. Pelvic tilt exercise Lie on your back with your knees bent. Brace your stomach. This means to tighten your muscles by pulling in and imagining your belly button moving toward your spine. You should feel like your back is pressing to the floor and your hips and pelvis are rocking back. Hold for about 6 seconds while you breathe smoothly. Repeat 8 to 12 times. Heel dig bridging Lie on your back with both knees bent and your ankles bent so that only your heels are digging intothe floor. Your knees should be bent about 90 degrees. Then push your heels into the floor, squeeze your buttocks, and lift your hips off the floor until your shoulders, hips, and knees are all in a straight line. Hold for about 6 seconds as you continue to breathe normally, and then slowly lower your hips back down to the floor and rest for up to 10 seconds. Do 8 to 12 repetitions. Hamstring stretch in doorway Lie on your back in a doorway, with one leg through the open door. Slide your leg up the wall to straighten your knee. You should feel a gentle stretch down the back of your leg. Hold the stretch for at least 15 to 30 seconds. Do not arch your back, point your toes, or bend either knee. Keep one heel touching the floor and the other heel touching the wall. Repeat with your other leg. Do 2 to 4 times for each leg. Hip flexor stretch Kneel on the floor with one knee bent and one leg behind you. Place your forward knee over your foot. Keep your other knee touching the floor. Slowly push your hips forward until you feel a stretch in the upper thigh of your rear leg. Hold the stretch for at least 15 to 30 seconds. Repeat with your other leg. Do 2 to 4 times on each side. documented in this encounter Progress Notes * Shahana Thao APRN, CNP - 01/31/2024 9:40 AM CDT Images from the original note were not included. [facility] Shahana Thao APRN, CNP SUBJECTIVE Chief Complaint Patient presents with Back Pain HPI This has been present for 3 weeks. 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 It is located bilateral thoracic back and bilateral lower back. The pain began gradually. The pain is described as aching. Pain at its worst is 8/10- constant pain is around a 5/10 . Triggering factors include: bending and being in one position for too long Relieving factors include: rest, walking, and OTC analgesics. Pertinent negatives include:weakness of the foot/leg, numbness or tingling of the foot/leg, saddle numbness, difficulty emptying bowel or bladder , urinary frequency, and urinary or fecal Incontinence . she has noted no other significant symptoms. There have been no similar symptoms in the past. Patient does not have a history of back surgery. Overall she feels her symptoms are worsening. Please note active problem list and medical history listed below: Patient Active Problem List Diagnosis Conchis's disease Inflammatory polyarthropathy (HCC) HTN (hypertension), benign Menopause Allergic urticaria Hypothyroidism Seasonal allergies Sjogren's disease (HCC) Hypertensive disorder Past Surgical History: Procedure Laterality Date SECTION Current Outpatient Medications: amLODIPine (NORVASC) 5 mg oral Tablet, Take by mouth in the morning., Disp: , Rfl: clindamycin phosphate (CLEOCIN) 1 % topical Solution, , Disp: , Rfl: cyanocobalamin (VITAMIN B-12) 1,000 mcg oral Tablet, Take 1 Tablet (1,000 mcg) by mouth in the morning., Disp: , Rfl: cyclobenzaprine (FLEXERIL) 10 mg oral Tablet, Take 1 Tablet (10 mg) by mouth if needed at bedtime for muscle spasms. Do not drive within 8 hours of taking medicaiton, Disp: 20 Tablet, Rfl: 0 estradioL (ESTRACE) 1 mg oral Tablet, Take 1 Tablet (1 mg) by mouth in the morning., Disp: , Rfl: famotidine (PEPCID) 20 mg oral Tablet, Take 1 Tablet (20 mg) by mouth in the morning and 1 Tablet (20 mg) in the evening. (Patient taking differently: Take 1 Tablet (20 mg) by mouth if needed for dyspepsia.), Disp: 180 Tablet, Rfl: 3 hydrOXYchloroQUINE (PLAQUENIL) 200 mg oral Tablet, Take 1 Tablet (200 mg) by mouth in the morning and 1 Tablet (200 mg) in the evening., Disp: , Rfl: KRILL OIL ORAL, Take by mouth once daily., Disp: , Rfl: levothyroxine (SYNTHROID) 50 mcg oral Tablet, Take 1 Tablet (50 mcg) by mouth daily before breakfast., Disp: , Rfl: methylPREDNISolone (MEDROL DOSPACK) 4 mg oral Tablets, Dose Pack, Take 1-6 Tablets (4-24 mg) by mouth as directed for 6 days. Take per package instructions., Disp: 21 Tablet, Rfl: 0 metroNIDAZOLE (METROCREAM) 0.75 % topical Cream, Apply to the affected area(s) twice daily., Disp: , Rfl: norethindrone-ethinyl estradiol (FEMHRT) 1-5 mg-mcg oral Tablet tablet, Take 1 Tablet by mouth in the evening. 5 mg daily in the evening, Disp: , Rfl: omeprazole (PRILOSEC) 20 mg oral Capsule, Delayed Release(E.C.), Take 1 Capsule (20 mg) by mouth daily before breakfast., Disp: 90 Capsule, Rfl: 3 pilocarpine (SALAGEN) 5 mg oral Tablet, Take 1 Tablet (5 mg) by mouth in the morning and 1 Tablet (5 mg) at noon and 1 Tablet (5 mg) in the evening and 1 Tablet (5 mg) before bedtime. Take 3-4 times daily., Disp: , Rfl: RESTASIS 0.05 % ophthalmic Dropperette, 1 Drop by both eyes (OU) route in the morning and 1 Drop inthe evening., Disp: , Rfl: rosuvastatin (CRESTOR) 5 mg oral Tablet, Take 1 Tablet (5 mg) by mouth in the morning., Disp: , Rfl: Saccharomyces boulardii (FLORASTOR) 250 mg oral Capsule, Take by mouth once daily., Disp: , Rfl: Review of Systems Pertinent items noted in HPI. All other systems reviewed and are negative. OBJECTIVE Vitals: 01/31/24 0930 BP: 146/87 BP Source: R arm BP position: Standing Pulse: 118 Physical Exam Constitutional: General: She is not in acute distress. Appearance: Normal appearance. HENT: Head: Normocephalic. Nose: Nose normal. Eyes: Conjunctiva/sclera: Conjunctivae normal. Pulmonary: Effort: Pulmonary effort is normal. No respiratory distress. Musculoskeletal: General: No swelling or tenderness. Cervical back: Normal and normal range of motion. No tenderness or bony tenderness. Normal range ofmotion. Comments: Gait normal and independent, Standing during the visit.Posture:, Normal and upright No deformity, ecchymosis, or warmth noted. Full sensation of bilateral lower extremities. Tenderness present over bilateral thoracic back and right midline lower back. Muscle tension: is noted bilateral thoracic back and bilateral lower back ROM:Flexion and extension are abnormal extension to estimated 5 degree. Flexion with pain starting at 40 degree, able to flex to fingertips below knees. Bilateral rotation is within normal limits. Pain is not present with bilateral side bending. Skin: General: Skin is warm and dry. Neurological: Mental Status: She is alert and oriented to person, place, and time. Motor: No weakness. Gait: Gait normal. Psychiatric: Mood and Affect: Mood normal. Behavior: Behavior normal. Thought Content: Thought content normal. ASSESSMENT & PLAN/MDM 1. Muscle strain methylPREDNISolone (MEDROL DOSPACK) 4 mg oral Tablets, Dose Pack cyclobenzaprine (FLEXERIL) 10 mg oral Tablet 2. Injury of back, initial encounter methylPREDNISolone (MEDROL DOSPACK) 4 mg oral Tablets, Dose Pack cyclobenzaprine (FLEXERIL) 10 mg oral Tablet I discussed my physical findings with the Patient. At this time Emilia back symptoms are more muscular in nature. Recommend OTC Acetaminophen (500mg, 2 tabs, up to 4 times daily as needed, not to exceed 4 g per day) and topical analgesics (Biofreeze, Menthol, etc) for symptom relief. Also utilize warm compresses and gentle stretching. Avoid activities that exacerbate symptoms but remain active. Handouts on pain and management given. Scripts given for dose pack and muscle relaxant. Patient discharged in no acute distress. , Verbalized when to return for reassessment or be seen inthe ER/UC. Red flag warning signs symptoms discussed. , Discussed further symptomatic care as in patient instructions. Patient states understanding, agreement and comfort with this plan through use of shared decision making. No further questions at discharge. PLEASE NOTE: The examination and treatment that you have received at [facility] has been rendered on a problem specific basis. The examination and treatment were not intended to be a substitute for routine medical care and were not an effort to provide complete medical service. It is important that you be examined again as recommended, and report any new or persisting problems at that time. It is impossible to recognize and treat all elements of an injury or illness in a simple Urgent Care visit. Voice recognition software may have been used in preparing this note, unintended word substitutions may be present. Shahana Thao APRN, GLENDY documented in this encounter Plan of Treatment Not on file documented as of this encounter Visit Diagnoses Diagnosis Muscle strain- Primary Unspecified site of sprain and strain Injury of back, initial encounter documented in this encounter Care Teams Licensed Marine Engineer Relationship Specialty Start Date End Date Yin Kong PAC [address] [place] [id number] PCP - General Physician Tree Farmer 01/05/24 Toñito Lyles MD [address] [facility] [address] [phone] Internal Medicine Rheumatology 10/11/23 documented as of this encounter Additional Source Comments PLEASE NOTE: Replies to this message will not be received.[facility]
--- OUTSIDE RECORDS SUMMARY | 2024-03-09 08:22 | XMS_ITS | Encounter Summary ---
Author Organization [employer] [facility] Address [address] [place] [address] Care Team Providers Care Engineering Librarian Name Role Phone Toñito Lyles MD Unavailable [phone] Yin Kong Primary Care Provider Reason for Referral * Radiology (Routine) - Closed Specialty Diagnoses / Procedures Referred By Contac t Referred To Contact Radiology Diagnoses Epigastric pain Procedures NM HEPATOBILIARY SCAN W PHARM Swathi Medley, PAC [address] [address] [facility] [address] [place] [address] Referral ID Status Reason Start Date Expiration Date Visits Re quested Visits Authorized [id number] Closed 02/09/2024 03/25/2024 1 1 Reason for Visit * Radiology (Routine) - Closed Specialty Diagnoses / Procedures Referred By Contac t Referred To Contact Radiology Diagnoses Epigastric pain Procedures NM HEPATOBILIARY SCAN W PHARM Swathi Medley, PAC [address] [address] [facility] [address] [place] [address] Referral ID Status Reason Start Date Expiration Date Visits Re quested Visits Authorized [id number] Closed 02/09/2024 03/25/2024 1 1 Encounter Details Date Type Department Care Team (Late st Contact Info) Description 02/16/2024 10:17 AM CDT - 02/16/2024 11:59 PM CDT Hospital Encounter [facility] Nuclear Medicine (a service of [facility]) [address] [place] [address] Swathi Medley, PAC [address] [facility] [address] [place] [address] Subj: Questionnaire Submission Discharge Disposition: Discharge Home Social History Tobacco Use Types Packs/Day Years Used Date Smoking Tobacco: Never Smokeless Tobacco: Never Alcohol Use Standard Drinks/Week Comments Not Currently 0 (1 standard drink = 0.6 oz pure alcohol) Patient is allergic to alcohol [facility] Utilities Answer Date Recorded In the past 12 months has [facility] electric, gas, oil, or water [employer] threatened to shut off services in your [...] often do you attend chur ch or hoahaoism services? Never 07/21/2023 Do you belong to any clubs o r organizations such as buddhist groups, unions, fraternal or athletic groups, or [...] and heating? Not hard at all 07/21/2023 [facility] - [...] of Places Lived in the Last Year ([facility]) Not on file 07/21/2023 In the last 12 months, was t here a time when you did not have a steady place to sleep or slept in a retirement (including now)? No 07/21/2023 Depression (PHQ-9) Answer [...] Sign Reading Time Taken Comments Blood Pressure - - Pulse - - Temperature - - Respiratory Rate - - Oxygen Saturation - - Inhaled Oxygen Concentration - - Weight 70.8 kg (156 lb) 02/16/2024 10:37 AM CDT Height - - Body Mass Index 26.31 09/06/2023 1:54 PM CDT documented in this encounter Functional Status Functional Status Response Date of Assess ment Are you deaf or do you have serious difficulty h earing? No 02/16/2024 documented as of this encounter Medications at Time of Discharge Medication Sig Dispensed Refills Start Date End Date amLODIPine (NORVASC) 5 mg oral Tablet Take by mouth in the morning. clindamycin phosphate (CLEOCIN) 1 % topical Solution 10/05/2023 cyanocobalamin (VITAMIN B-12) 1,000 mcg oral Tablet Take 1 Tablet (1,000 mcg) by mouth in the morning. estradioL (ESTRACE) 1 mg oral Tablet Take 1 Tablet (1 mg) by mouth in the morning. famotidine (PEPCID) 20 mg oral TabletIndications:Gene ralized abdominal pain,Epigastric pain Take 1 Tablet (20 mg) by mouth in the morning and 1 Tablet (20 mg) in the evening. 180 Tablet 3 07/21/2023 07/20/2024 hydrOXYchloroQUINE (PLAQUENIL) 200 mg oral Tablet Take 1 Tablet (200 mg) by mouth in the morning and 1 Tablet (200 mg) in the evening. KRILL OIL ORAL Take by mouth once daily. levothyroxine (SYNTHROID) 50 mcg oral Tablet Take 1 Tablet (50 mcg) by mouth daily before breakfast. metroNIDAZOLE (METROCREAM) 0.75 % topical Cream Apply to the affected area(s) twice daily. 08/23/2023 norethindrone-ethinyl estradiol (FEMHRT) 1-5 mg-mcg oral Tablet tablet Take 1 Tablet by mouth in the evening. 5 mg daily in the evening omeprazole (PRILOSEC) 20 mg oral Capsule, Delayed Release(E.C.)Indicatio ns:Epigastric pain Take 1 Capsule (20 mg) by mouth daily before breakfast. 90 Capsule 3 08/25/2023 08/24/2024 pilocarpine (SALAGEN) 5 mg oral Tablet Take 1 Tablet (5 mg) by mouth in the morning and 1 Tablet (5 mg) at noon and 1 Tablet (5 mg) in the evening and 1 Tablet (5 mg) before bedtime. Take 3-4 times daily. RESTASIS 0.05 % ophthalmic Dropperette 1 Drop by both eyes (OU) route in the morning and 1 Drop in the evening. 08/23/2023 rosuvastatin (CRESTOR) 5 mg oral Tablet Take 1 Tablet (5 mg) by mouth in the morning. 07/06/2023 Saccharomyces boulardii (FLORASTOR) 250 mg oral Capsule Take by mouth once daily. cyclobenzaprine (FLEXERIL) 10 mg oral TabletIndications:Inju ry of back, initial encounter,Muscle strain Take 1 Tablet (10 mg) by mouth if needed at bedtime for muscle spasms. Do not drive within 8 hours of taking medicaiton 20 Tablet 01/31/2024 03/01/2024 documented as of this encounter Plan of Treatment Not on file documented as of this encounter Procedures Procedure Name Priority Date/Time Associated Diagnosis Comments NM HEPATOBILIARY SCAN W PHARM Routine 02/16/2024 12:43 PM CDT documented in this encounter Results * NM HEPATOBILIARY SCAN W PHARM [...] 2. Otherwise normal hepatobiliary imaging study. Swathi Medley [facility] documented in this encounter Visit Diagnoses Not on filedocumented in this encounter Administered Medications Inactive Administered Medications - up to 3 most recent administrations Medication Order MAR Action Action Date Dose Rate Site sincalide (KINEVAC) 1.42 mcg in sodium chloride 0.9 % (NS) 25 mL syringe 1.42 mcg (rounded from 1.416 mcg = 0.02 mcg/kg ? 70.8 kg), IV infusion, Once, 1 dose, On Wed02/16/24 at 1115, Pharmacy prepare syringe containing Sincalide in normal saline, total volume of 25 mL. Infuse using syringe pump at Slow Speed setting. Stop administration if patient unable to tolerate infusion. is a contraindication for sincalide administration. Only administer in Nuclear Medicine. New Bag/Start Infusion 02/16/2024 11:38 AM CDT 1.42 mcg documented in this encounter Care Teams Engineering Librarian Relationship Specialty Start Date End Date Yin Kong PAC [address] [place] [phone] PCP - General Physician Cath Lab Radiological Technologist 01/05/24 Toñito Lyles MD [address] [facility] [address] [place] [address] Internal Medicine Rheumatology 10/11/23 documented as of this encounter Additional Source Comments PLEASE NOTE: Replies to this message will not be received.[facility] and [facility]
--- OUTSIDE RECORDS SUMMARY | 2024-03-09 08:22 | XMS_ITS | Clinical Summary ---
Author Organization [employer] [facility] Address [address] [place] [address] Care Team Providers Care Bridge Ironworker Name Role Phone Toñito Lyles MD Unavailable [phone] Yin Kong Primary Care Provider [phone] Allergies Active Allergy Reactions Criticality Noted Date [...] 03/01/2022 Sjogren's disease 11/22/2021 Seasonal allergies 09/04/2009 Encounters Date Type Department Care Team Description 02/16/2024 10:17 AM CDT - 02/16/2024 11:59 PM CDT Hospital Encounter [facility] Nuclear Medicine (a service of [facility]) [address] [place] [address] Swathi Medley, PAC Subj: Questionnaire Submission Discharge Disposition: Discharge Home 02/16/2024 Travel Subj: Question naire Submission 01/31/2024 9:40 AM CDT Office Visit [facility] [address] [address] Shahana Thao, WIRE WEAVING LOOM SETTER,EXPORT SALES MANAGER Dx: Muscle strain (Primary Dx) 01/31/2024 Travel Subj: Question naire Submission from Last 3 Months Immunizations Name Administration Dates Next Due Influenza Vac, IM, Quadrival ent Preserv Free, (>6 months) 03/26/2023,04/07/2016 Tdap Vaccine, IM, (Adacel)(Boostrix) 01/14/2018, 10/13/2014,01/25/2006 Varicella Vaccine, IM (Shingrix) 09/21/2019,04/02 Family History Medical History Relation Name Comments Coronary artery disease Father Hypertension Father Thyroid Disease Father Osteopenia Mother Thyroid Disease Mother Relation Name Status Comments Father Alive Mother Alive Social History Tobacco Use Types Packs/Day Years Used Date Smoking Tobacco: Never Smokeless Tobacco: Never Tobacco Cessation:Counseling Given: Not Answered Alcohol Use Standard Drinks/Week Comments Not Currently 0 (1 standard drink = 0.6 oz pure alcohol) Patient is allergic to alcohol [facility] Utilities Answer Date Recorded In the past 12 months has [facility] [employer], oil, or water [employer] threatened to shut off services in your [...] often do you attend chur ch or druze services? Never 07/21/2023 Do you belong to any clubs o r organizations such as taoism groups, unions, fraternal or athletic groups, or [...] and heating? Not hard at all 07/21/2023 [facility] - Occupational [...] place to sleep or slept in a long term (including now)? No 07/21/2023 Depression (PHQ-9) Answer [...] Mass Index 26.31 09/06/2023 1:54 PM CDT Plan of Treatment Health Maintenance Due Date Last Done Comments Hepatitis C Testing 1964 HIV Screen 10/21/1979 Hepatitis B Vaccines (1 of 3 - 19+ 3-dose series) 10/21/1983 Lipids Standard 10/21/1999 CT Colonography 2009 Colonoscopy 2009 Colorectal Cancer Screening 2009 Fecal Immunochemical DNA Test (FIT-DNA) 2009 Fecal Immunochemical Test (FIT) 2009 Mammogram Standard 09/21/2017 09/21/2016 COVID-19 Vaccine ( season) 2024 11/19/2021, 02/10/2021, 08/13/2020, Additional history exists Influenza Vaccine (#1) 2024 , 03/14/2021, 04/07/2016 Depression Screening 07/20/2024 07/21/2023, 07/21/19 Cervical Cancer Screening 10/22/2026 10/22/2021 HPV Testing 10/22/2026 10/22/2021 DTaP/Tdap/Td Vaccines (4 - Td or Tdap) 01/15/2028 01/14/2018, 10/13/2014, 01/25/2006 Respiratory Syncytial Virus (RSV) Vaccine (1 - 1-dose 75+ series) 10/21/2039 Varicella Zoster Sequential Completed 09/21/2019, 1 06/20/2018 HIB Vaccines Aged Out No longer eligi ble based on patient's age to complete this topic HPV Vaccines Aged Out No longer eligi ble based on patient's age to complete this topic Hepatitis A Vaccines Aged Out No long er eligible based on patient's age to complete this topic Meningococcal Vaccines Aged Out No lo nger eligible based on patient's age to complete this topic Pneumococcal Vaccine (0-64 Years) Aged Out No longer eligible based on [...] Otherwise normal hepatobiliary imaging study. Swathi Medley [facility] from Last 3 Months Care Teams Bridge Ironworker Relationship Specialty Start Date End Date Yin Kong PAC [address] [place] [phone] PCP - General Physician Dramatic Agent 01/05/24 Toñito Lyles MD [address] [facility] [address] [phone] Internal Medicine Rheumatology 10/11/23 Additional Source Comments PLEASE NOTE: Replies to this message will not be received.[facility]
--- OUTSIDE RECORDS SUMMARY | 2024-03-09 08:23 | XMS_ITS | Encounter Summary ---
Author Organization [facility] Address [address] [place] [id number] Care Team Providers Care Child Development Associate Teacher Name Role Phone Susan Antoine APRN, CNP Primary Care Provi mario Unavailable Encounter Details Date Type Department Care Team (Late st Contact Info) Description 08/14/2020 Documentation Only INTERFACED REPORT Unknown, Provider Social History Tobacco Use Types Packs/Day Years Used Date Smoking Tobacco: Never Smokeless Tobacco: Never Alcohol Use Standard Drinks/Week Comments No 0 (1 standard drink = 0.6 oz pur e alcohol) Comments No Sex and Gender Information Value Date Recorded Sex Assigned at Female 07/21/2020 2:27 PM CDT Legal Sex Female 4:44 AM CONVERTING OPERATOR Gender Identity Female 07/21/2020 2:27 PM CDT Sexual Orientation Straight 07/21/2020 2: 27 PM CDT COVID-19 Exposure Response Date Recorded In the last month, have you been in contact with someone who was confirmed or suspected to have Coronavirus / COVID-19? No / Unsure 08/13/2020 2:47 PM CDT documented as of this encounter Plan of Treatment Not on file documented as of this encounter Visit Diagnoses Not on filedocumented in this encounter Care Teams Child Development Associate Teacher Relationship Specialty Start Date End Date Susan Antoine APRN CNP PCP - General Nurse Practitioner 05/07/15 04/08/23 documented as of this encounter
--- OUTSIDE RECORDS SUMMARY | 2024-03-09 08:23 | XMS_ITS | Encounter Summary ---
Author Organization [place] Address [address] [place] [address] Care Team Providers Care Sheet Metal Assembler And Riveter Name Role Phone Susan Antoine APRN, CNP Primary Care Provi mario Unavailable Marquita Bridges MD Unavailable + Marquita Bridges MD Unavailable + Encounter Details Date Type Department Care Team (Late st Contact Info) Description 05/19/2016 My[facility] Medical Advice [facility] [id number] [place] [phone] Yin Bae APRN CHINESE MEDICINE PRACTITIONER [address] [place] [address] [address] [place] [address] Social History Tobacco Use Types Packs/Day Years Used Date Smoking Tobacco: Never Smokeless Tobacco: Never Alcohol Use Standard Drinks/Week Comments Yes 0 (1 standard drink = 0.6 oz pur e alcohol) very little Comments No Sex and Gender Information Value Date Recorded Sex Assigned at Female 07/21/2020 2:27 PM CDT Legal Sex Female 4:44 AM RETAIL LINK ANALYST Gender Identity Female 07/21/2020 2:27 PM CDT Sexual Orientation Straight 07/21/2020 2: 27 PM CDT documented as of this encounter Plan of Treatment Not on file documented as of this encounter Visit Diagnoses Not on filedocumented in this encounter Care Teams Sheet Metal Assembler And Riveter Relationship Specialty Start Date End Date Susan Antoine APRN CNP PCP - General Nurse Practitioner 05/07/15 04/08/23 Marquita Bridges MD PRIMARY ENT [address] [facility] [address] [place] [address] PCP - Assigned PCP 05/10/16 07/05/18 Marquita Bridges MD PRIMARY ENT [address] [facility] [address] [place] [address] Assigned PCP 05/10/16 09/30/19 documented as of this encounter
--- OUTSIDE RECORDS SUMMARY | 2024-03-09 08:23 | XMS_ITS | Referral Summary ---
Author Organization [place] Address [address] [place] [address] Care Team Providers Care Machine Maintenance Technician Name Role Phone Unavailable Primary Care Provider Unavailabl e Allergies Active Allergy Reactions Criticality Noted Date Comments No Known Drug Allergy 11/24/2006 Medications ZYRTEC 10 MG PO TABSIndications:An nual physical exam 1 TABLET DAILY Active nystatin-triamcino lone (MYCOLOG II) creamIndications:R ectal itching Apply topically 2 times daily 30 g 3 6 Active FINACEA 15 % FOAM Apply daily 6 Active minocycline (MINOCIN,DYNACIN) 100 MG capsule prn 1 6 Active AVIANE 0.1-20 MG-MCG per tabletIndications: Encounter for surveillance of contraceptive pills Take 1 tablet by mouth daily Patient takes active pills continuously. Dispense 4 packages please 28 tablet 0 7 Active predniSONE (DELTASONE) 20 MG tabletIndications: Acute bronchitis, unspecified organism Take 1 tablet (20 mg) by mouth daily 5 tablet 7 Active fluticasone (FLONASE) 50 MCG/ACT sprayIndications:P ND (post-nasal drip) [place] 2 sprays into both nostrils daily 1 Bottle 7 Active guaiFENesin-codein e (ROBITUSSIN AC) 100-10 MG/5ML SOLN solutionIndication s:Acute bronchitis, unspecified organism Take 5 mLs by mouth nightly as needed 120 mL 7 Active Active Problems Patient Care Coordination No te Formatting of this note migh t be different from the original. [email or web address] Problem Noted Date Diagnosed Date Acute left-sided low back pain without sciatica 02/03/2016 History of gestational diabetes 03/23/2014 History of [place] thyroiditis 09/15/2011 Achilles bursitis or tendinitis 03/23/2011 CARDIOVASCULAR SCREENING; LDL GOAL LESS THAN 160 03/02/2010 Seasonal allergies 09/04/2009 Resolved Problems Problem Noted Date Diagnosed Date Resolved Date Lateral epicondylitis 05/06/20102010 Immunizations Name Administration Dates Next Due COVID-19 MONOVALENT 12+ (Pfizer) 02/10/2021,08/01,07/23/2020 Influenza (IIV3) PF 04/18/2012,04/02/2011 Influenza Vaccine >6 months, quad, PF 04/07/2016,05/07/2015,03/23/2014,2012 TDAP (Adacel,Boostrix) 01/25/2006 TDAP Vaccine (Boostrix) 10/13/2014 10/26/19 15 Social History Tobacco Use Types Packs/Day Years Used Date Smoking Tobacco: Never Smokeless Tobacco: Never Alcohol Use Standard Drinks/Week Comments No 0 (1 standard drink = 0.6 oz pur e alcohol) Adolescent Education Answer Date Record ed Getting School Help Needed Not on file 10/26 Comments No Sex and Gender Information Value Date Recorded Sex Assigned at Female 07/21/2020 2:27 PM CDT Legal Sex Female 4:44 AM PHOTO LAB TECHNICIAN Gender Identity Female 07/21/2020 2:27 PM CDT Sexual Orientation Straight 07/21/2020 2: 27 PM CDT Last Filed Vital Signs Vital Sign Reading Time Taken Comments Blood Pressure 163/92 09/25/2016 1:21 PM CDT Pulse 96 09/25/2016 1:21 PM CDT Temperature 37.2 ??C (99 ??F) 09/25/2016 1:21 PM CDT Respiratory Rate 16 09/21/2016 9:19 AM CDT Oxygen Saturation 98% 09/25/2016 1:21 PM CDT Inhaled Oxygen Concentration - - Weight 72.6 kg (160 lb) 09/25/2016 1:21 PM CDT Height 162.6 cm (5' 4) 09/21/2016 9:19 AM CDT Body Mass Index 27.46 09/21/2016 9:19 AM CDT Plan of Treatment Not on file Procedures Procedure Name Priority Date/Time Associated Diagnosis Comments MA SCREENING DIGITAL BILATERAL Routine 09/21/2016 10:16 AM CDT Encounter for other screening for malignant neoplasm of breast FECAL COLORECTAL CANCER SCREEN FIT Routine 04/07/2016 7:34 AM PHOTO LAB TECHNICIAN Colon cancer screening COMPREHENSIVE METABOLIC PANEL Routine 05/07/2015 8:49 AM PHOTO LAB TECHNICIAN Routine general medical examination at a health care facility LIPID REFLEX TO DIRECT LDL PANEL Routine 05/07/2015 8:49 AM PHOTO LAB TECHNICIAN CARDIOVASCULAR SCREENING; LDL GOAL LESS THAN 160 PAP IMAGED THIN LAYER SCREEN Routine 05/07/2015 12:00 AM PHOTO LAB TECHNICIAN Routine general medical examination at a health care facility from Last 3 Months or Most Recently Relevant to Health Maintenance Results * *MA Screening Digital Bilateral (09/21/2016 10:16 AM CDT) Anatomical Region Laterality Modality Breast Bilateral Mammography Impressions 09/21/2016 10:44 AM CDT IMPRESSION: BI-RADS CATEGORY: 1 - ??NEGATIVE. RECOMMENDED FOLLOW-UP: Annual Mammography. The patient will be notified of the results. CHRISSY MAGDALENO Narrative 09/21/2016 10:44 AM CDT Examination: Bilateral digital screening mammography with computer aided detection, 09/21/2016 10:16 AM. Comparison: 04/11/2013, 09/09/2010, 03/26/2009 History: No current breast concerns. BREAST DENSITY: Heterogeneously dense. COMMENTS: ??No suspicious finding. Procedure Note Chrissy Magdaleno MD - 09/21/2016 Examination: Bilateral digital screening mammography with computer aided detection, 09/21/2016 10:16 AM. Comparison: 04/11/2013, 09/09/2010, 03/26/2009 History: No current breast concerns. BREAST DENSITY: Heterogeneously dense. COMMENTS: No suspicious finding. IMPRESSION: BI-RADS CATEGORY: 1 - NEGATIVE. RECOMMENDED FOLLOW-UP: Annual Mammography. The patient will be notified of the results. CHRISSY MAGDALENO Trent Moran MD IMG MAMMOGRAPHY ORDERABLES Bambi l Result * Fecal colorectal cancer screen FIT (04/07/2016 7:34 AM PHOTO LAB TECHNICIAN) Occult Blood Scn FIT Negative NEG [facility] Stool specimen (specimen) 04/07/2016 7:34 AM PHOTO LAB TECHNICIAN 04/10/2016 1:15 PM PHOTO LAB TECHNICIAN Susan Antoine APRN DOWEL SETTING MACHINE OPERATOR LAB - STOOLS ORDERA BLES Final Result Performing Organization Address City/[facility]/ZIP Co de Phone Number [facility] [address] [place] [address] * (ABNORMAL) LIPID REFLEX TO DIRECT LDL PANEL (05/07/2015 8:49 AM PHOTO LAB TECHNICIAN) Cholesterol 176 <200 mg/dL [facility] Triglycerides 71 <150 mg/dL [facility] HDL Cholesterol 57 >49 mg/dL [facility] LDL Cholesterol Calculated 105(H) <100 mg/dL [facility] Comment: Above desirable: ??100-129 mg/dl Borderline High: ??130-159 mg/dL High: ? 160-189 mg/dL Very high: ? >189 mg/dl Non HDL Cholesterol 119 <130 mg/dL [facility] Blood specimen (specimen) 05/07/2015 8:49 AM PHOTO LAB TECHNICIAN 05/07/2015 8:50 AM PHOTO LAB TECHNICIAN Susan Antoine APRN DOWEL SETTING MACHINE OPERATOR LAB - BLOOD ORDERAB LES Final Result Performing Organization Address City/[facility]/ZIP Co de Phone Number [facility] [address] [place] [address] * Comprehensive metabolic panel (05/07/2015 8:49 AM PHOTO LAB TECHNICIAN) Sodium 139 133 - 144 mmol/L [facility] Potassium 3.9 3.4 - 5.3 mmol/L [facility] Chloride 102 94 - 109 mmol/L [facility] Carbon Dioxide 28 20 - 32 mmol/L [facility] Anion Gap 9 3 - 14 mmol/L [facility] Glucose 80 70 - 99 mg/dL [facility] Urea Nitrogen 11 7 - 30 mg/dL [facility] Creatinine 0.59 0.52 - 1.04 mg/dL [facility] GFR Estimate >90 Non GFR Calc >60 mL/min/1. 7m2 [facility] GFR Estimate If Black >90 GFR Calc >60 mL/min/1. 7m2 [facility] Calcium 8.6 8.5 - 10.1 mg/dL [facility] Bilirubin Total 0.4 0.2 - 1.3 mg/dL [facility] Albumin 3.9 3.4 - 5.0 g/dL [facility] Protein Total 8.1 6.8 - 8.8 g/dL [facility] Alkaline Phosphatase 57 40 - 150 U/L [facility] ALT 14 0 - 50 U/L [facility] AST 10 0 - 45 U/L [facility] Blood specimen (specimen) 05/07/2015 8:49 AM PHOTO LAB TECHNICIAN 05/07/2015 8:50 AM PHOTO LAB TECHNICIAN us Susan Antoine LITHOGRAPH PRINTER DOWEL SETTING MACHINE OPERATOR LAB - BLOOD ORDERAB LES Final Result [facility] [address] [place] [address] * PAP IMAGED THIN LAYER SCREEN (05/07/2015 12:00 AM PHOTO LAB TECHNICIAN) PAP NIL COPATH Copath Report Patient Name: EMILIA RICHARDS MR#: [id number] Specimen #: [id number] Collected: 05/07/2015 Received: 05/07/2015 Reported: 05/09/2015 08:35 Ordering Phy(s): SUSAN ANTOINE SPECIMEN/STAIN PROCESS: Pap imaged thin layer prep screening (Surepath, FocalPoint with guided screening) ? Pap-Cyto x 2, Reflex HPV if ASCUS/LSIL x 1 SOURCE: Cervical, endocervical Pap imaged thin layer prep screening (Surepath, FocalPoint with guided screening) SPECIMEN ADEQUACY: Satisfactory for evaluation. -Transformation zone component absent. CYTOLOGIC INTERPRETATION: Negative for Intraepithelial Lesion or Malignancy Electronically signed out by: Elliot Cash Processed and screened at [facility], [facility] CLINICAL HISTORY: Other: patient is not currently having periods due to unspecified control, Other: unspecified control, Previous normal pap Date of Last Pap: 09/15/11, Papanicolaou Test Limitations: ??Cervical cytology is a screening test with limited sensitivity; regular screening is critical for cancer prevention; Pap tests are primarily effective for the diagnosis/preventi on of squamous cell carcinoma, not adenocarcinomas or other cancers. TESTING LAB LOCATION: [address] ??[id number] COLLECTION SITE: Client: [facility] Location: [facility] (R) [facility] Cytologic material (specimen) 05/07/2015 05/07/2015 2:34 PM PHOTO LAB TECHNICIAN us Susan Antoine LITHOGRAPH PRINTER DOWEL SETTING MACHINE OPERATOR LAB - [facility] AL SPECIMEN Final Result [facility] from Last 3 Months or Most Recently Relevant to Health Maintenance Insurance [facility]
--- OUTSIDE RECORDS SUMMARY | 2024-03-09 08:23 | XMS_ITS | Encounter Summary ---
Author Organization [place] Address [address] [place] [address] Care Team Providers Care Pacs Administrator Name Role Phone Susan Antoine APRN, CNP Primary Care Provi mario Unavailable Encounter Details Date Type Department Care Team (Late st Contact Info) Description 07/24/2020 Documentation Only INTERFACED REPORT Unknown, Provider Social History Tobacco Use Types Packs/Day Years Used Date Smoking Tobacco: Never Smokeless Tobacco: Never Alcohol Use Standard Drinks/Week Comments No 0 (1 standard drink = 0.6 oz pur e alcohol) Comments No Sex and Gender Information Value Date Recorded Sex Assigned at Female 07/21/2020 2:27 PM CDT Legal Sex Female 4:44 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
--- OUTSIDE RECORDS SUMMARY | 2024-03-09 08:23 | XMS_ITS | Encounter Summary ---
Author Organization [place] Address [address] [place] [address] Care Team Providers Care Regulatory Affairs Strategy Specialist Name Role Phone Susan Antoine APRN, CNP Primary Care Provi mario Unavailable Marquita Bridges MD Unavailable + Marquita Bridges MD Unavailable + Encounter Details Date Type Department Care Team (Late st Contact Info) Description 01/29/2016 [facility] Medical Advice [address] [address] Brooklyn Hernandez CMA Social History Tobacco Use Types Packs/Day Years Used Date Smoking Tobacco: Never Smokeless Tobacco: Never Alcohol Use Standard Drinks/Week Comments Yes 0 (1 standard drink = 0.6 oz pur e alcohol) very little Comments No Sex and Gender Information Value Date Recorded Sex Assigned at Female 07/21/2020 2:27 PM CDT Legal Sex Female 4:44 AM CLOTH SHRINKER Gender Identity Female 07/21/2020 2:27 PM CDT Sexual Orientation Straight 07/21/2020 2: 27 PM CDT documented as of this encounter Plan of Treatment Not on file documented as of this encounter Visit Diagnoses Not on filedocumented in this encounter Care Teams Regulatory Affairs Strategy Specialist Relationship Specialty Start Date End Date Susan Antoine APRN CNP PCP - General Nurse Practitioner 05/07/15 04/08/23 Marquita Bridges MD PRIMARY ENT [id number] [place] [address] PCP - Assigned PCP 05/10/16 07/05/18 Marquita Bridges MD [facility] [address] [facility] [address] [place] [address] Assigned PCP 05/10/16 09/30/19 documented as of this encounter
--- OUTSIDE RECORDS SUMMARY | 2024-03-09 08:23 | XMS_ITS | Encounter Summary ---
Author Organization [place] Address [address] [place] [address] Care Team Providers Care Powder Guard Name Role Phone Susan Antoine APRN, CNP Primary Care Provi mario Unavailable Marquita Bridges MD Unavailable + Marquita Bridges MD Unavailable + Encounter Details Date Type Department Care Team (Late st Contact Info) Description 08/20/2017 [facility] Medical Advice [address] [address] Marilu Greco, [facility] Social History Tobacco Use Types Packs/Day Years Used Date Smoking Tobacco: Never Smokeless Tobacco: Never Alcohol Use Standard Drinks/Week Comments No 0 (1 standard drink = 0.6 oz pur e alcohol) Comments No Sex and Gender Information Value Date Recorded Sex Assigned at Female 07/21/2020 2:27 PM CDT Legal Sex Female 4:44 AM GIS ADMINISTRATOR Gender Identity Female 07/21/2020 2:27 PM CDT Sexual Orientation Straight 07/21/2020 2: 27 PM CDT documented as of this encounter Plan of Treatment Not on file documented as of this encounter Visit Diagnoses Not on filedocumented in this encounter Care Teams Powder Guard Relationship Specialty Start Date End Date Susan Antoine APRN CNP PCP - General Nurse Practitioner 05/07/15 04/08/23 Marquita Bridges MD PRIMARY ENT [id number] [place] [id number] PCP - Assigned PCP 05/10/16 07/05/18 Marquita Bridges MD PRIMARY ENT [address] [facility] [address] [place] [address] Assigned PCP 05/10/16 09/30/19 documented as of this encounter
--- OUTSIDE RECORDS SUMMARY | 2024-03-09 08:23 | XMS_ITS | Encounter Summary ---
Author Organization [place] Address [address] [place] [address] Care Team Providers Care Recenterer Name Role Phone Brooklyn Cotto PA-C Primary Care Provid er Susan Antoine APRN [facility] Primary Care Provi mario Unavailable Marquita Bridges MD Unavailable + Marquita Bridges MD Unavailable + Encounter Details Date Type Department Care Team (Late st Contact Info) Description 09/18/2011 [facility] Medical Advice [address] [address] Brooklyn Cotto PA-C [address] [address] Social History Tobacco Use Types Packs/Day Years Used Date Smoking Tobacco: Never Smokeless Tobacco: Never Alcohol Use Standard Drinks/Week Comments No 0 (1 standard drink = 0.6 oz pur e alcohol) Comments No Sex and Gender Information Value Date Recorded Sex Assigned at Female 07/21/2020 2:27 PM CDT Legal Sex Female 4:44 AM SYSTEMS PROJECT MANAGER Gender Identity Female 07/21/2020 2:27 PM CDT Sexual Orientation Straight 07/21/2020 2: 27 PM CDT documented as of this encounter Plan of Treatment Not on file documented as of this encounter Visit Diagnoses Not on filedocumented in this encounter Care Teams Recenterer Relationship Specialty Start Date End Date Brooklyn Cotto PA-C [address] [facility] [address] [address] PCP - General Family Practice 09/03/10 05/06/15 Susan Antoine APRN LABELING SPECIALIST [address] [facility] [address] [address] PCP - General Nurse Practitioner 05/07/15 04/08/23 Marquita Bridges MD PRIMARY ENT [address] [facility] [address] [place] [address] PCP - Assigned PCP 05/10/16 07/05/18 Marquita Bridges MD PRIMARY ENT [address] [facility] [address] [place] [address] Assigned PCP 05/10/16 09/30/19 documented as of this encounter
--- OUTSIDE RECORDS SUMMARY | 2024-03-09 08:23 | XMS_ITS | Clinical Summary ---
Author Organization [place] Address [address] [place] [address] Care Team Providers Care Licensed Appraiser Name Role Phone Unavailable Primary Care Provider [...] (FLONASE) 50 MCG/ACT sprayIndications:P ND (post-nasal drip) [place] 2 sprays into both nostrils daily 1 Bottle 7 Active guaiFENesin-codein e (ROBITUSSIN AC) 100-10 MG/5ML SOLN solutionIndication s:Acute bronchitis, unspecified organism Take 5 mLs by mouth nightly as needed 120 mL 7 Active Active Problems Patient Care Coordination No te Formatting of this note migh t be different from the original. [email or web address] Problem Noted Date Diagnosed Date Acute left-sided [...] 01/25/2006 TDAP Vaccine (Boostrix) 10/13/2014 10/26/19 15 Family History Medical History Relation Comments C.A.D. Father had an MS in his 60s Cerebrovascular Disease Father Hypertension Father Cancer Maternal Aunt ovarian or cervi efe CA Gynecology Mother Fibrocystic [place] [address] Disease Hypertension Mother Thyroid Disease Mother C.A.D. Paternal Grandmother of MS in 60s Other - See Comments Paternal Uncle 1 possible b lood clot Cerebrovascular Disease Paternal Uncle 2 Thyroid Disease Sister Relation Status Comments Father Maternal Aunt Mother Paternal Grandmother Paternal Uncle 1 Paternal Uncle 2 Sister Social History Tobacco Use Types Packs/Day Years [...] PM CDT Legal Sex Female 4:44 AM SENIOR ELECTRICAL DESIGN ENGINEER Gender Identity Female 07/21/2020 2:27 PM CDT [...] 09/21/2016 9:19 AM CDT Plan of Treatment Health Maintenance Due Date Last Done Comments ADVANCE CARE PLANNING 1965 ANNUAL REVIEW OF HM ORDERS 1964 CT COLONOGRAPHY 1964 FLEX SIG 1964 sDNA (Cologuard) 1964 COLONOSCOPY 1974 HIV SCREENING 10/21/1979 HEPATITIS C SCREENING 1982 HEPATITIS B IMMUNIZATION (1 of 3 - 19+ 3-dose series) 10/21/1983 YEARLY PREVENTIVE VISIT 05/07/2016 05/07/19 16, 03/23/2014, 03/21/2013, Additional history exists COLORECTAL CANCER SCREENING 04/07/2017 FIT 04/07/2017 04/07/2016 GLUCOSE 05/07/2018 05/07/2015, 03/04, 03/21/2013, Additional history exists PAP 05/07/2018 05/07/2015, 08/31, 09/08/2010, Additional history exists MAMMO SCREENING 09/21/2018 09/21/2016, 04/02, 09/09/2010, Additional history exists LIPID 05/07/2020 05/07/2015, 03/04, 03/21/2013, Additional history exists PHQ-2 (once per calendar year) 2023 05/07/2015 COVID-19 Vaccine ( season) 2024 02/10/2021, 08/13/2020, 07/23/2020 INFLUENZA VACCINE (#1) 2024 9, 04/07/2016, 05/07/2015, Additional history exists DTAP/TDAP/TD IMMUNIZATION (3 - Td or Tdap) 10/13/2024 10/13/2014, 01/25/2006 RSV VACCINE (1 - 1-dose 75+ series) 10/21/2039 ZOSTER IMMUNIZATION Completed 09/21/2019, 9 HPV IMMUNIZATION Aged Out No longer e ligible based on patient's age to complete this topic MENINGITIS IMMUNIZATION Aged Out No l onger eligible based on patient's age to complete this topic Pneumococcal Vaccine: Pediatrics (0 to 5 Years) and At-Risk Patients (6 to 64 Years) Aged Out No longer eligible based on patient's age to complete this topic RSV MONOCLONAL ANTIBODY Aged Out No l onger eligible based on patient's age to complete this topic Procedures Procedure Name Priority Date/Time Associated Diagnosis Comments MA SCREENING DIGITAL BILATERAL Routine 09/21/2016 10:16 AM CDT Encounter for other screening for malignant neoplasm of breast FECAL COLORECTAL CANCER SCREEN FIT Routine 04/07/2016 7:34 AM SENIOR ELECTRICAL DESIGN ENGINEER Colon cancer screening COMPREHENSIVE METABOLIC PANEL Routine 05/07/2015 8:49 AM SENIOR ELECTRICAL DESIGN ENGINEER Routine general medical examination at a health care facility LIPID REFLEX TO DIRECT LDL PANEL Routine 05/07/2015 8:49 AM SENIOR ELECTRICAL DESIGN ENGINEER CARDIOVASCULAR SCREENING; LDL GOAL LESS THAN 160 PAP IMAGED THIN LAYER SCREEN Routine 05/07/2015 12:00 AM SENIOR ELECTRICAL DESIGN ENGINEER Routine general medical examination at a health [...] be notified of the results. CHRISSY MAGDALENO us Trent Moran MD IMG MAMMOGRAPHY ORDERABLES Bambi l Result * Fecal colorectal cancer screen FIT (04/07/2016 7:34 AM SENIOR ELECTRICAL DESIGN ENGINEER) Occult Blood Scn FIT Negative NEG [facility] Stool specimen (specimen) 04/07/2016 7:34 AM SENIOR ELECTRICAL DESIGN ENGINEER 04/10/2016 1:15 PM SENIOR ELECTRICAL DESIGN ENGINEER us Susan Antoine APRN IT HELP DESK TECHNICIAN LAB - STOOLS ORDERA BLES Final Result [facility] [address] [place] [address] * (ABNORMAL) LIPID REFLEX TO DIRECT LDL PANEL (05/07/2015 8:49 AM SENIOR ELECTRICAL DESIGN ENGINEER) Cholesterol 176 <200 mg/dL [facility][1] Triglycerides 71 <150 mg/dL [facility][1] HDL Cholesterol 57 >49 mg/dL [facility] LDL Cholesterol Calculated 105(H) <100 mg/dL [facility][1] Comment: Above desirable: ??100-129 mg/dl Borderline High: ??130-159 mg/dL High: ? 160-189 mg/dL Very high: ? >189 mg/dl Non HDL Cholesterol 119 <130 mg/dL [facility][1] Blood specimen (specimen) 05/07/2015 8:49 AM SENIOR ELECTRICAL DESIGN ENGINEER 05/07/2015 8:50 AM SENIOR ELECTRICAL DESIGN ENGINEER us Susan Antoine APRN IT HELP DESK TECHNICIAN LAB - BLOOD ORDERAB LES Final Result [facility][1] [address] [place] [address] * Comprehensive metabolic panel (05/07/2015 8:49 AM SENIOR ELECTRICAL DESIGN ENGINEER) Sodium 139 133 - 144 mmol/L [facility][1] Potassium 3.9 3.4 - 5.3 mmol/L [facility][1] Chloride 102 94 - 109 mmol/L [facility][1] Carbon Dioxide 28 20 - 32 mmol/L [facility][1] Anion Gap 9 3 - 14 mmol/L [facility][1] Glucose 80 70 - 99 mg/dL [facility][1] Urea Nitrogen 11 7 - 30 mg/dL [facility][1] Creatinine 0.59 0.52 - 1.04 mg/dL [facility][1] GFR Estimate >90 Non GFR Calc >60 mL/min/1. 7m2 [facility][1] GFR Estimate If Black >90 GFR Calc >60 mL/min/1. 7m2 [facility][1] Calcium 8.6 8.5 - 10.1 mg/dL [facility][1] Bilirubin Total 0.4 0.2 - 1.3 mg/dL [facility][1] Albumin 3.9 3.4 - 5.0 g/dL [facility][1] Protein Total 8.1 6.8 - 8.8 g/dL [facility][1] Alkaline Phosphatase 57 40 - 150 U/L [facility][1] ALT 14 0 - 50 U/L [facility][1] AST 10 0 - 45 U/L [facility][1] Blood specimen (specimen) 05/07/2015 8:49 AM SENIOR ELECTRICAL DESIGN ENGINEER 05/07/2015 8:50 AM SENIOR ELECTRICAL DESIGN ENGINEER Roxi Elina COMMERCIAL LEASE ADMINISTRATOR IT HELP DESK TECHNICIAN LAB - BLOOD ORDERAB LES Final Result [facility] [address] [place] [address] * PAP IMAGED THIN LAYER SCREEN (05/07/2015 12:00 AM SENIOR ELECTRICAL DESIGN ENGINEER) PAP NIL COPATH Copath Report Patient Name: EMILIA RICHARDS MR#: [id number] Specimen #: [id number] Collected: 05/07/2015 Received: 05/07/2015 [...] by: Elliot Cash Processed and screened at [facility] CLINICAL HISTORY: Other: patient is not currently [...] adenocarcinomas or other cancers. TESTING LAB LOCATION: [address] ??[address] COLLECTION SITE: Client: ??[facility] Location: [facility] (R) [facility] Cytologic material (specimen) 05/07/2015 05/07/2015 2:34 PM SENIOR ELECTRICAL DESIGN ENGINEER Susan Diane Elina COMMERCIAL LEASE ADMINISTRATOR IT HELP DESK TECHNICIAN LAB - [facility] AL SPECIMEN Final Result [facility] from Last 3 Months or Most Recently Relevant to Health Maintenance Insurance [place] [id number] [employer] [email or web address] [place] [id number] [facility] [employer]
--- OUTSIDE RECORDS SUMMARY | 2024-03-09 08:23 | XMS_ITS | Encounter Summary ---
Author Organization [facility] Address [address] [place] [id number] Care Team Providers Care Window Shade Estimator Name Role Phone Brooklyn Cotto PA-C Primary Care Provid er Susan Antoine APRN [facility] Primary Care Provi mario Unavailable Marquita Bridges MD Unavailable + Marquita Bridges MD Unavailable + Reason for Visit * Reason Onset Date Comments Outreach 12/19/2014 [facility] ATT 1,2 Encounter Details Date Type Department Care Team (Late st Contact Info) Description 12/19/[address] [phone] Brooklyn Cotto PA-C [address] [address] Outreach ([facility] ATT 1,2) Social History Tobacco Use Types Packs/Day Years Used Date Smoking Tobacco: Never Smokeless Tobacco: Never Alcohol Use Standard Drinks/Week Comments Yes 0 (1 standard drink = 0.6 oz pur e alcohol) very little Comments No Sex and Gender Information Value Date Recorded Sex Assigned at Female 07/21/2020 2:27 PM CDT Legal Sex Female 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 Gender Identity Female 07/21/2020 2:27 PM CDT Sexual Orientation Straight 07/21/2020 2: 27 PM CDT documented as of this encounter Miscellaneous Notes * Telephone Encounter - Vlad Constantin - 12/26/2014 11:41 AM CDT 12/26/2014 Call Regarding Preventive Health Screening Colonoscopy and Cervical/PAP Attempt 2 Message on voicemail Comments: Outreach Benzol Operator rbg * Telephone Encounter - Paulina Ortega - 12/19/2014 2:56 PM CDT 12/19/2014 Call Regarding Preventive Health Screening Colonoscopy and Cervical/PAP Attempt 1 Message on voicemail Comments: Outreach Benzol Operator Paulina Mattson documented in this encounter Plan of Treatment Not on file documented as of this encounter Visit Diagnoses Not on filedocumented in this encounter Care Teams Window Shade Estimator Relationship Specialty Start Date End Date Brooklyn Cotto PA-C [address] [place] [address] PCP - General Family Practice 09/03/10 05/06/15 Susan Antoine APRN CNP [address] [facility] [address] [place] [address] PCP - General Nurse Practitioner 05/07/15 04/08/23 Marquita Bridges MD PRIMARY ENT [id number] [facility] [address] [place] [address] PCP - Assigned PCP 05/10/16 07/05/18 Mraquita Bridges MD PRIMARY ENT [address] [facility] [address] [place] [address] Assigned PCP 05/10/16 09/30/19 documented as of this encounter
== END 2024-03-08 12:25 | disposition home or self-care (01) ==
LOC: NFLDREF 03-09 08:19
PROVIDERS: PCP Family Medicine; Referring Provider Family Medicine; Visit Provider Family Medicine
DX: Z01.419 Encounter for gynecological examination (general) (routine) without abnormal findings (principal); I10 Essential (primary) hypertension; E03.9 Hypothyroidism, unspecified; E78.5 Hyperlipidemia, unspecified; E53.8 Deficiency of other specified B group vitamins; L50.8 Other urticaria; N95.1 Menopausal and female climacteric states; E03.8 Other specified hypothyroidism; E06.3 Autoimmune thyroiditis; M06.4 Inflammatory polyarthropathy; M35.05 Sjogren syndrome with inflammatory arthritis; Z01.818 Encounter for other preprocedural examination; J30.2 Other seasonal allergic rhinitis
CPT/HCPCS: 80053; 80061; 82607; 84443

== ENCOUNTER 2024-08-14 11:20 | Outpatient (CLI) | payer BC, SELFPAY | END 2024-08-14 11:21 | disposition home or self-care (01) | LOC: NFLDREF 08-17 08:49 | PROVIDERS: PCP Family Medicine; Referring Provider Family Medicine; Visit Provider Family Medicine | DX: I10 Essential (primary) hypertension (principal); E03.8 Other specified hypothyroidism; E06.3 Autoimmune thyroiditis | CPT/HCPCS: 80053; 84443 ==

== ENCOUNTER 2024-10-12 15:23 | Outpatient (CLI) | payer BC, SELFPAY | END 2024-10-12 15:24 | disposition home or self-care (01) | PROVIDERS: PCP Family Medicine; Visit Provider Family Medicine | DX: L65.9 Nonscarring hair loss, unspecified (principal); E20.0 Idiopathic hypoparathyroidism; R10.13 Epigastric pain | CPT/HCPCS: 80053; 82306; 82607; 82728; 83540; 83550; 83735; 84443; 84630 ==

== ENCOUNTER 2025-04-24 13:34 | Outpatient (CLI) | payer BC, SELFPAY ==
--- NOTE | 2025-04-24 15:20 | CRLHL7_ITS ---
For Patients: As a result of the Century Cures Act, medical imaging exams and procedure reports are released immediately into your electronic medical record. You may view this report before your referring provider. If you have questions, please contact your health care provider. BILATERAL DIGITAL SCREENING MAMMOGRAM WITH COMPUTER-AIDED DETECTION AND TOMOSYNTHESIS CLINICAL HISTORY: Routine screening exam. COMPARISON: Mammogram 10/03/2020, 07/20/2018. TECHNIQUE: Digital mammogram in CC and MLO projections including computer-aided detection (CAD) and tomosynthesis. BREAST COMPOSITION: There are scattered areas of fibroglandular density. FINDINGS: RIGHT Breast: No suspicious findings. LEFT Breast: There is possible architectural distortion in the superior breast, depth. IMPRESSION: LEFT breast possible architectural distortion. RECOMMENDATIONS: Additional mammographic views of the LEFT breast including 90 degree spot compression. LEFT breast ultrasound may also be required. A member of the health care team will contact the patient to schedule the required additional imaging appointment(s). BI-RADS Category 0: Incomplete: Need Additional Imaging Evaluation Dictated by Hilary Gonzalez MD @ 04/26/2025 7:27:09 AM/nancy SANDERS/Dictated by: Hilary Gonzalez MD @ 04/26/2025 7:27:00 AM (Electronically Signed)
== END 2025-04-24 13:35 | disposition home or self-care (01) ==
LOC: MAMMO 13:35
PROVIDERS: PCP Family Medicine; Visit Provider Obstetrics & Gynecology
DX: Z12.31 Encounter for screening mammogram for malignant neoplasm of breast (principal); R92.8 Other abnormal and inconclusive findings on diagnostic imaging of breast
CPT/HCPCS: 77063; 77067

== ENCOUNTER 2025-05-02 11:14 | Outpatient (CLI) | payer BC, SELFPAY ==
--- NOTE | 2025-05-02 11:30 | CRLHL7_ITS ---
For Patients: As a result of the Cures Act, medical imaging exams and procedure reports are released immediately into your electronic medical record. You may view this report before your referring provider. If you have questions, please contact your health care provider. LEFT DIAGNOSTIC MAMMOGRAM WITH COMPUTER-AIDED DETECTION AND TOMOSYNTHESIS LEFT BREAST ULTRASOUND CLINICAL HISTORY: LEFT breast mass/asymmetry. COMPARISON: 04/24/2025, 08/03/2023, 10/03/2020. TECHNIQUE: Digital LEFT mammogram in two projections. Computer-aided detection and tomosynthesis were used in this interpretation. Real-time ultrasound imaging of LEFT breast with imaging documentation. Scanning was performed by both the technologist and the radiologist. BREAST COMPOSITION: There are scattered areas of fibroglandular density. FINDINGS: Additional mammogram images LEFT breast submitted. Stable LEFT axillary lymph nodes, unchanged from 04/04/2019. Decreased conspicuity of asymmetric density in the upper LEFT breast. No suspicious calcifications. Targeted LEFT breast ultrasound performed. At 1 o`clock, 3-6 cm from the nipple, normal dense fibroglandular tissue is present. No suspicious mass. IMPRESSION: Probably benign dense fibroglandular tissue LEFT breast 1 o`clock, 3-6 cm from the nipple. RECOMMENDATIONS: Short-term follow-up LEFT breast mammogram evaluation in six months. A lay language report of this examination will be provided to the patient. BI-RADS Category 3: Probably Benign Dictated by Villa Munguia MD @ 05/02/2025 1:09:55 PM /sp SP/Dictated by: Villa Munguia MD @ 05/02/2025 1:09:00 PM (Electronically Signed)
--- NOTE | 2025-05-02 12:15 | CRLHL7_ITS ---
For Patients: As a result of the Century Cures Act, medical imaging exams and procedure reports are released immediately into your electronic medical record. You may view this report before your referring provider. If you have questions, please contact your health care provider. PLEASE SEE LEFT BREAST DIAGNOSTIC MAMMOGRAM PERFORMED SAME DAY. CRL:sp SP/Dictated by: Villa Munguia MD @ 05/02/2025 1:07:00 PM (Electronically Signed)
== END 2025-05-02 11:15 | disposition home or self-care (01) ==
LOC: MAMMO 11:14
PROVIDERS: PCP Family Medicine; Visit Provider Obstetrics & Gynecology
DX: N63.20 Unspecified lump in the left breast, unspecified quadrant (principal); R92.8 Other abnormal and inconclusive findings on diagnostic imaging of breast
CPT/HCPCS: 76642; 77065; G0279